=== PATIENT | male | born 2000 | race Caucasian/White ===

== ENCOUNTER 2024-10-16 06:30 | Emergency (ER) | payer MEDICAID ==
[~2024-10-16] VITALS: Ht 175.3 cm; Wt 136.0 kg
[~2024-10-16 06:30] MED LIST: ZOFR4T SL
--- NOTE | 2024-10-16 06:58 | ED.PDOC ---
GI ASSESSMENT HPI Comments This is a 23 year old male SEBLE presenting to the ED with chief complaint of abdominal pain. Patient reports that he has been experiencing 9/10 epigastric abdominal pain with associated nausea, vomiting, and diarrhea for the past 4.5 hours. EMS relays that the patient was given 4mg of Zofran on route to the ED. Patient denies any fever, chills, SOB, chest pain, GARCIA, or dysuria. Chief Complaint: Abdominal Pain Time Seen by MD: 06:55 Reviewed Notes: Nurses Notes, Surveyor Mine Notes, Medications, Allergies Allergies: Coded Allergies: NO KNOWN ALLERGIES (Unverified , 04/01/24) Home Meds Active Scripts Ondansetron Odt 4MG Tab (ZOFRAN PO) 4 Mg Tb, 4 MG SL QIDPRN, #20 TAB ODT TAB-DISSOLVE IN MOUTH, THEN SWALLOW Prov:CEDRIC SANTOS MD 04/01/24 Information Source: Patient, Emergency Med Personnel Mode of Arrival: EMS Timing: Days Duration: Since onset Prehospital treatment: None Quality: Sharp Vomitus: Watery Stool: Watery Severity: Moderate Recent: None Recent Hx of: None Pain Location: Epigastric Modifying Factors: Nothing Associated sign and symptoms: Nausea, Vomiting, Diarrhea, Abdominal Pain Past Medical History PAST MEDICAL HISTORY: Denies Surgical History: Denies all surgeries Family History Family History: Reviewed,noncontributory to illness, No family hx of Cancer, No family hx of DM, No family hx of Heart joe, No family hx of HTN, No family hx ofKidney joe, No family hx of Liver joe, No family hx of Lung joe, No family hx of Stroke Social History Smoker: Non-Smoker Alcohol: Denies ETOH Use Drugs: Denies Drug Use Lives In: Home Constitutional: denies: chills, diaphoresis, fatigue, fever, malaise, sweats, weakness, others EENTM: denies: blurred vision, double vision, ear bleeding, ear discharge, ear drainage, ear pain, ear ringing, eye pain, eye redness, hearing loss, mouth pain, mouth swelling, nasal discharge, nose bleeding, nose congestion, nose pain, photophobia, tearing, throat pain, throat swelling, voice changes, others Respiratory: denies: cough, hemoptysis, orthopnea, SOB at rest, shortness of breath, SOB with excertion, stridor, wheezing, others Cardiovascular: denies: chest pain, dizzy spells, diaphoresis, Dyspnea on exertion, edema, irregular heart beat, left arm pain, lightheadedness, palpitations, PND, syncope, others Gastrointestinal: reports: abdominal pain, diarrhea, nausea, vomiting; denies: abdomen distended, blood streaked bowels, constipated, dysphagia, difficulty swallowing, hematemesis, melena, poor appetite, poor fluid intake, rectal bleeding, rectal pain, others Genitourinary: denies: burning, dysuria, flank pain, frequency, hematuria, incontinence, penile discharge, penile sore, pain, testicle pain, testicle swelling, urgency, others Neurological: denies: dizziness, fainting, headache, left sided numbness, left sided weakness, numbness, paresthesia, pre-existing deficit, right sided numbness, right sided weakness, seizure, speech problems, tingling, tremors, weakness, others Musculoskeletal: denies: back pain, gout, joint pain, joint swelling, muscle pain, muscle stiffness, neck pain, others Integumetry: denies: bruises, change in color, change in hair/nails, dryness, laceration, lesions, lumps, rash, wounds, others Allergic/Immunocompromised: denies: Difficulty Healing, Frequent Infections, Hives, Itching, others Hematologic/Lymphatic: denies: anemia, blood clots, easy bleeding, easy bruising, swollen glands, others Endocrine: denies: excessive hunger, excessive sweating, excessive thirst, excessive urination, flushing, intolerance to cold, intolerance to heat, unexplained weight gain, unexplained weight loss, others Psychiatric: denies: anxiety, bipolar disorder, depression, hopeless, panic disorder, schizophrenia, sleepless, suicidal, others All Other Systems: Reviewed and Negative Physical Exam General Appearance: No Apparent Distress, Normal HEENT: Normal ENT Inspection, Pharynx Normal, TMs Normal Neck: Full Range of Motion, Non-Tender, Normal, Normal Inspection Respiratory: Chest Non-Tender, Lungs Clear, No Accessory Muscle Use, No Respiratory Distress, Normal Breath Sounds Cardiovascular: No Edema, No JVD, No Murmur, No Gallop, Normal Peripheral Pulses, Regular Rate/Rhythm Breast Exam: Deferred Gastrointestinal: No Organomegaly, No Pulsatile Mass, Normal Bowel Sounds, Soft, Tenderness (Epigastric abdominal tenderness) Genitalia: Deferred Pelvic: Deferred Rectal: Deferred Extremities: No calf tenderness, Normal capillary refill, Normal inspection, Normal range of motion, Non-tender, No pedal edema Musculoskeletal : Apperance: Normal Neurologic: Alert, 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 Was a procedure done?: No GI differential Dx Differential Diagnosis: Cholecystitis, Gastritis/PUD, Gastroenteritis, GI hemorrhage, UTI, Dehydration, Electrolyte Imbalance X-Ray, Labs, Meds, VS Vital Signs Date Time Temp Pulse Resp B/P (MAP) Pulse Ox O2 Delivery O2 Flow Rate FiO2 10/16/24 08:06 83 17 94 Room Air* 0 21 10/16/24 08:06 98.3 83 17 139/79 (99) 94 98.3 10/16/24 06:35 98.1 63 18 132/81 (98) 97 98.1 Lab Test 10/16/24 06:52 Range/Units White Blood Count 11.1 H 4.4-10.8 10^3/uL Red Blood Count 5.30 4.5-5.90 10^6/uL Hemoglobin 16.3 13.5-17.5 g/dL Hematocrit 46.6 41.0-53.0 % Mean Corpuscular Volume 88.0 80.0-100.0 fL Mean Corpuscular Hemoglobin 30.7 28.0-32.0 pg Mean Corpuscular Hemoglobin Concent 34.9 32.0-36.0 g/dL Red Cell Distribution Width 13.5 11.8-14.3 % Platelet Count 300 140-450 10^3/uL Mean Platelet Volume 6.7 L 6.9-10.8 fL Neutrophils (%) (Auto) 80.9 H 37.0-80.0 % Lymphocytes (%) (Auto) 15.3 10.0-50.0 % Monocytes (%) (Auto) 3.0 0.0-12.0 % Eosinophils (%) (Auto) 0.3 0.0-7.0 % Basophils (%) (Auto) 0.5 0.0-2.0 % Neutrophils # (Auto) 9.0 H 1.6-8.6 10 ^3/uL Lymphocytes # (Auto) 1.7 0.4-5.4 10 ^3/uL Monocytes # (Auto) 0.3 0-1.3 10 ^3/uL Eosinophils # (Auto) 0 0-0.8 10 ^3/uL Basophils # (Auto) 0.1 0-0.2 10 ^3/uL Nucleated Red Blood Cells 0.0 % Sodium Level 140 136-145 mmol/L Potassium Level 4.8 3.5-5.1 mmol/L Chloride Level 103 98-107 mmol/L Carbon Dioxide Level 22 20-31 mmol/L Anion Gap 15 5-15 Blood Urea Nitrogen 10 9-23 mg/dL Creatinine 0.94 0.700-1.30 mg/dL Glomerular Filtration Rate Calc 118 >90 mL/min BUN/Creatinine Ratio 10.6 10.0-20.0 Serum Glucose 119 H 74-106 mg/dL Calcium Level 10.4 8.7-10.4 mg/dL Current Medications Medications (Trade) Dose Ordered Sig/Abdulaziz Route Start Time Stop Time Status Last Admin Famotidine (Pepcid Tablet) 20 mg ONCE ONCE PO 10/16/24 08:00 10/16/24 08:01 DC 10/16/24 08:03 Ondansetron HCl (Zofran Po) 4 mg ONCE ONCE PO 10/16/24 08:00 10/16/24 08:01 DC 10/16/24 08:02 Al Hydrox/Mg Hydrox/Simethicone (Maalox Plus) 15 ml ONCE ONCE PO 10/16/24 08:00 10/16/24 08:01 DC 10/16/24 08:03 Chest XR: FINDINGS: Lines and Tubes: None Lungs: No focal consolidation. Pleura: No effusion. No pneumothorax. Cardiomediastinal contours: Unremarkable Bones: No acute osseous abnormality. IMPRESSION: 1. No acute cardiopulmonary disease. Images Reviewed?: Images reviewed and evaluated by me Time of 1ST Reevaluation: 07:55 Reevaluation 1ST: Unchanged Patient Education/Counseling: Diagnosis, Treatment Family Education/Counseling: No Family Present Additional Information Previous visits reviewed: 04/01/24 for food poisoning The following tests were ordered, and results were reviewed by me: CBC, BMP, CXR Additional Information was gathered from interviewing the following independent historians: EMS I reviewed and agreed with the following test results read by other providers: Chest XR I discussed treatment and results with medical personnel and: patient Comprehensive systems review obtained and negative except for what is stated in the HPI. Departure 1 Departure Time of Disposition: 09:31 (Patient likely with gastroenteritis. Patient is feeling better and tolerating p.o.. We will discharge patient home with outpatient follow up) Impression: Primary Impression: Gastroenteritis Disposition: HOME / SELF CARE / HOMELESS Condition: Stable Additional Instructions: You likely have gastroenteritis. It is important to stay well hydrated and well rested. This usually resolves within 1 week. If your symptoms worsen or you have any other concerns please return to the ER. Discharged With: Self Critical Care Note Critical Care Time?: No Stability Stability form required: No Heart Score Heart Score: Heart Score Response (Comments) Value History N/A 0 EKG N/A 0 Age N/A 0 Risk Factors N/A 0 Troponin N/A 0 Total 0 I personally scribed for LUIZ GRADY MD ([email or web address]) on 10/16/24 at 06:58. Electronically submitted by Rony Amin ([email or web address]). I personally scribed for LUIZ GRADY MD ([email or web address]) on 10/16/24 at 07:31. Electronically submitted by Rony Amin ([email or web address]). LUIZ GRADY MD Oct 16, 2024 06:58
--- NOTE | 2024-10-16 07:16 | DVH ---
CHEST RADIOGRAPH Indication: epigastric pain Technique: Single frontal view of the chest was obtained Comparison: None FINDINGS: Lines and Tubes: None Lungs: No focal consolidation. Pleura: No effusion. No pneumothorax. Cardiomediastinal contours: Unremarkable Bones: No acute osseous abnormality. IMPRESSION: 1. No acute cardiopulmonary disease.
[2024-10-16 07:22] LABS: Basophils # (auto) 0.1 10 ^3/uL (0-0.2); Basophils % (auto) 0.5 % (0.0-2.0); Eosinophils # (auto) 0 10 ^3/uL (0-0.8); Eosinophils % (auto) 0.3 % (0.0-7.0); Hematocrit 46.6 % (41.0-53.0); Hemoglobin 16.3 g/dL (13.5-17.5); Lymphocytes # (auto) 1.7 10 ^3/uL (0.4-5.4); Lymphocytes % (auto) 15.3 % (10.0-50.0); Mean Corpuscular Hemoglobin 30.7 pg (28.0-32.0); Mean Corpuscular Hgb Conc. 34.9 g/dL (32.0-36.0); Monocytes # (auto) 0.3 10 ^3/uL (0-1.3); Neutrophils % (auto) 80.9 % (37.0-80.0); Platelet Count (auto) 300 10^3/uL (140-450); Red Cell Distribution Width 13.5 % (11.8-14.3); White Blood Cell 11.1 10^3/uL (4.4-10.8)
[2024-10-16 07:57] LABS: Chloride 103 mmol/L (98-107); Potassium 4.8 mmol/L (3.5-5.1); Sodium 140 mmol/L (136-145)
[2024-10-16 07:58] LABS: Anion Gap 15 (5-15); Calcium 10.4 mg/dL (8.7-10.4); Carbon Dioxide 22 mmol/L (20-31)
[2024-10-16] MEDS: ONDANSETRON ODT 4 MG TAB PO ONE (08:02)
[2024-10-16 08:03] LABS: Glucose 119 mg/dL (74-106)
[2024-10-16] MEDS: FAMOTIDINE 20 MG TAB PO ONE (08:03)
[2024-10-16] MEDS: MAALOX PLUS or MAALOX 30 ML PO ONE (08:03)
[2024-10-16 08:06] VITALS: PULSE 83; RESP 17; O2SAT 94
[2024-10-16 08:28] LABS: BUN/Creatinine Ratio 10.6 (10.0-20.0); Blood Urea Nitrogen 10 mg/dL (9-23)
[2024-10-16 09:36] VITALS: BP 127/78; PULSE 80; RESP 16; TEMP 98.1; O2SAT 94
== END 2024-10-16 09:39 | disposition home or self-care (01) ==
LOC: ER 06:30 → EDBD 06:30 → ER 09:39
DX: K52.9 Noninfective gastroenteritis and colitis, unspecified (principal)
CPT/HCPCS: 36415; 71045; 80048; 85025; 99284; Q0162

== ENCOUNTER 2025-04-09 00:32 | Inpatient (IN) | payer MEDICAID ==
[~2025-04-09] VITALS: Ht 180.3 cm; Wt 159.0 kg
[2025-04-09] MEDS ORDERED: ONDANSETRON ODT 4 MG TAB PO ONE (01:00)
--- NOTE | 2025-04-09 01:10 | ED.PDOC ---
GI ASSESSMENT HPI Comments 24-year-old male with give the ER for abdominal pain. About 1.5 hours ago, after eating, he developed epigastric abdominal pain, radiating through his back and through both flanks, associated with bouts of nausea and vomiting. Patient denies any history of abdominal surgeries. Denies any fevers. Has never had similar discomfort in the past. However, concerned that he may have gallstones because he was reading up on it. Denies any urinary discomfort. Chief Complaint: Abdominal Pain Time Seen by MD: 01:10 Reviewed Notes: Nurses Notes Allergies: Coded Allergies: NO KNOWN ALLERGIES (Unverified , 04/01/24) Home Meds Active Scripts Ondansetron Odt 4MG Tab (ZOFRAN PO) 4 Mg Tb, 4 MG SL QIDPRN, #20 TAB ODT TAB-DISSOLVE IN MOUTH, THEN SWALLOW Prov:CEDRIC SANTOS MD 04/01/24 Information Source: Patient Mode of Arrival: Ambulatory Past Medical History PAST MEDICAL HISTORY: Denies Surgical History: Denies all surgeries Family History Family History: Reviewed,noncontributory to illness, No family hx of Cancer, No family hx of DM, No family hx of Heart joe, No family hx of HTN, No family hx ofKidney joe, No family hx of Liver joe, No family hx of Lung joe, No family hx of Stroke Social History Smoker: Non-Smoker Alcohol: Denies ETOH Use Drugs: Denies Drug Use Lives In: Home Constitutional: denies: chills, diaphoresis, fatigue, fever, malaise, sweats, weakness, others EENTM: denies: blurred vision, double vision, ear bleeding, ear discharge, ear drainage, ear pain, ear ringing, eye pain, eye redness, hearing loss, mouth pain, mouth swelling, nasal discharge, nose bleeding, nose congestion, nose pain, photophobia, tearing, throat pain, throat swelling, voice changes, others Respiratory: denies: cough, hemoptysis, orthopnea, SOB at rest, shortness of breath, SOB with excertion, stridor, wheezing, others Cardiovascular: denies: chest pain, dizzy spells, diaphoresis, Dyspnea on exertion, edema, irregular heart beat, left arm pain, lightheadedness, palpitations, PND, syncope, others Gastrointestinal: reports: abdominal pain, nausea, vomiting; denies: abdomen distended, blood streaked bowels, constipated, diarrhea, dysphagia, difficulty swallowing, hematemesis, melena, poor appetite, poor fluid intake, rectal bleeding, rectal pain, others Genitourinary: denies: burning, dysuria, flank pain, frequency, hematuria, incontinence, penile discharge, penile sore, pain, testicle pain, testicle swelling, urgency, others Neurological: denies: dizziness, fainting, headache, left sided numbness, left sided weakness, numbness, paresthesia, pre-existing deficit, right sided numbness, right sided weakness, seizure, speech problems, tingling, tremors, weakness, others Musculoskeletal: denies: back pain, gout, joint pain, joint swelling, muscle pain, muscle stiffness, neck pain, others Integumetry: denies: bruises, change in color, change in hair/nails, dryness, laceration, lesions, lumps, rash, wounds, others Allergic/Immunocompromised: denies: Difficulty Healing, Frequent Infections, Hives, Itching, others Hematologic/Lymphatic: denies: anemia, blood clots, easy bleeding, easy bruising, swollen glands, others Endocrine: denies: excessive hunger, excessive sweating, excessive thirst, excessive urination, flushing, intolerance to cold, intolerance to heat, unexplained weight gain, unexplained weight loss, others Psychiatric: denies: anxiety, bipolar disorder, depression, hopeless, panic disorder, schizophrenia, sleepless, suicidal, others Physical Exam General Appearance: Normal, Other (Uncomfortable appearing, actively vomiting) HEENT: Normal ENT Inspection, Pharynx Normal, TMs Normal Neck: Full Range of Motion, Non-Tender, Normal, Normal Inspection Respiratory: Chest Non-Tender, Lungs Clear, No Accessory Muscle Use, No Respiratory Distress, Normal Breath Sounds Cardiovascular: No Edema, No JVD, No Murmur, No Gallop, Normal Peripheral Pulses, Regular Rate/Rhythm Breast Exam: Deferred Gastrointestinal: No Organomegaly, No Pulsatile Mass, Normal Bowel Sounds, Soft, Other (+epigastric ttp) Genitalia: Deferred Pelvic: Deferred Rectal: Deferred Extremities: No calf tenderness, Normal capillary refill, Normal inspection, Normal range of motion, Non-tender, No pedal edema Musculoskeletal : Apperance: Normal Neurologic: Alert, 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 Was a procedure done?: No GI differential Dx Differential Diagnosis: Cholecystitis, Gastritis/PUD, Gastroenteritis, Pancreatitis, Food Poisoning X-Ray, Labs, Meds, VS Vital Signs Date Time Temp Pulse Resp B/P (MAP) Pulse Ox O2 Delivery O2 Flow Rate FiO2 04/09/25 02:03 98.8 04/09/25 00:36 97.0 64 16 140/79 99 97.0 Lab Test 04/09/25 02:36 04/09/25 01:15 Range/Units Lactic Acid Level 1.6 0.4-2.0 mmol/L White Blood Count 12.2 H 4.4-10.8 10^3/uL Red Blood Count 5.38 4.5-5.90 10^6/uL Hemoglobin 15.6 13.5-17.5 g/dL Hematocrit 46.9 41.0-53.0 % Mean Corpuscular Volume 87.3 80.0-100.0 fL Mean Corpuscular Hemoglobin 29.0 28.0-32.0 pg Mean Corpuscular Hemoglobin Concent 33.3 32.0-36.0 g/dL Red Cell Distribution Width 13.9 11.8-14.3 % Platelet Count 442 140-450 10^3/uL Mean Platelet Volume 6.1 L 6.9-10.8 fL Neutrophils (%) (Auto) 75.8 37.0-80.0 % Lymphocytes (%) (Auto) 17.9 10.0-50.0 % Monocytes (%) (Auto) 4.7 0.0-12.0 % Eosinophils (%) (Auto) 0.8 0.0-7.0 % Basophils (%) (Auto) 0.8 0.0-2.0 % Neutrophils # (Auto) 9.3 H 1.6-8.6 10 ^3/uL Lymphocytes # (Auto) 2.2 0.4-5.4 10 ^3/uL Monocytes # (Auto) 0.6 0-1.3 10 ^3/uL Eosinophils # (Auto) 0.1 0-0.8 10 ^3/uL Basophils # (Auto) 0.1 0-0.2 10 ^3/uL Nucleated Red Blood Cells 0.0 % Prothrombin Time 11.3 9.3-11.8 sec Prothrombin Time INR 1.07 0.9-1.15 Activated Partial Thromboplast Time 30.7 24.5-34.5 SEC Sodium Level 138 136-145 mmol/L Potassium Level 3.7 3.5-5.1 mmol/L Chloride Level 103 98-107 mmol/L Carbon Dioxide Level 24 20-31 mmol/L Anion Gap 11 5-15 Blood Urea Nitrogen 11 9-23 mg/dL Creatinine 0.90 0.700-1.30 mg/dL Glomerular Filtration Rate Calc 124 >90 mL/min BUN/Creatinine Ratio 12.2 10.0-20.0 Serum Glucose 115 H 74-106 mg/dL Calcium Level 9.7 8.7-10.4 mg/dL Total Bilirubin 0.6 0.2-1.0 mg/dL Aspartate Amino Transferase (AST) 28 13-40 U/L Alanine Aminotransferase (ALT) 49 H 7-40 U/L Alkaline Phosphatase 69 46-116 U/L Total Protein 8.0 5.7-8.2 g/dL Albumin 4.8 3.2-4.8 g/dL Triglycerides Level Pending Cholesterol Level Pending LDL Cholesterol Pending HDL Cholesterol Pending Lipase 30 12-53 U/L Current Medications Medications (Trade) Dose Ordered Sig/Abdulaziz Route Start Time Stop Time Status Last Admin Acetaminophen (Tylenol Tablet Or Capsule) 1,000 mg ONCE ONCE PO 04/09/25 01:00 04/09/25 01:01 DC 04/09/25 02:03 Lidocaine HCl (Xylocaine 2% Viscous) 10 ml ONCE ONCE PO 04/09/25 01:00 04/09/25 01:01 DC 04/09/25 02:03 Al Hydrox/Mg Hydrox/Simethicone (Maalox Plus) 30 ml ONCE ONCE PO 04/09/25 01:00 04/09/25 01:01 DC 04/09/25 02:03 Sodium Chloride 1,000 ml @ 1,000 mls/hr Q1H ONCE IV 04/09/25 01:15 04/09/25 02:14 DC 04/09/25 02:03 Ondansetron HCl (Zofran) 4 mg ONCE ONCE IV 04/09/25 01:15 04/09/25 01:16 DC 04/09/25 02:05 Famotidine (Pepcid Injection) 20 mg ONCE ONCE IV 04/09/25 01:15 04/09/25 01:16 DC 04/09/25 02:04 Ketorolac Tromethamine (Toradol Injection) 15 mg ONCE ONCE IV 04/09/25 01:15 04/09/25 01:16 DC 04/09/25 02:04 PROCEDURE(s): ABDL - ABDOMEN LIMITED REASON: epigastric pain ORDER NUMBER(s): [id number], ACCESSION NUMBER(s): [id number] INDICATION: epigastric pain TECHNIQUE: Multiple real-time sonographic images were obtained of the right upper quadrant. COMPARISON: None FINDINGS: The liver demonstrates diffusely increased echotexture without focal mass lesions. The liver measures 19.1 cm. Normal hepatopetal portal venous flow appreciated. No evidence of pleural effusion or abdominal ascites. There is no intrahepatic or extrahepatic ductal dilatation. The common bile duct was not well visualized. Gallstones and sludge identified within the gallbladder. Gallbladder wall thickening measuring up to 6 mm. Negative sonographic barakat's sign. The right kidney measures 11.2 cm. The right kidney is normal in contour, size, and shape. The echogenicity is normal. There is no hydronephrosis. The pancreas is not well visualized due to overlying bowel gas. IMPRESSION: 1. Cholelithiasis and gallbladder sludge with gallbladder wall thickening. Negative sonographic Barakat sign. Findings equivocal for acute cholecystitis. 2. Hepatic steatosis and hepatomegaly. Time of 1ST Reevaluation: 01:07 Reevaluation 1ST: Unchanged Patient Education/Counseling: Diagnosis, Treatment Family Education/Counseling: No Family Present SEPSIS Sepsis Screen Date sepsis recognized/suspect: Apr 09, 2025 Time Sepsis recognized/suspect: 0039 Recent Procedure: No On Antibiotic Therapy: No Respiratory Rate >20: No Heart Rate >90: No Temp<36 C (96.8 F) or >38.3 C: No SBP <90 or MAP <65 mmHG: No New Acute Mental Status Change: No Is the patient on CPAP, BIPAP,: No Physician Orders Urinalysis (04/09/25 00:54) Abdomen Limited (04/09/25 01:17) Blood Culture (04/09/25 02:23) Vital Signs Date Time Temp Pulse Resp B/P (MAP) Pulse Ox O2 Delivery O2 Flow Rate FiO2 04/09/25 02:03 98.8 04/09/25 00:36 97.0 64 16 140/79 99 97.0 Laboratory Tests Test 04/09/25 01:15 04/09/25 02:36 White Blood Count 12.2 10^3/uL (4.4-10.8) H Lactic Acid Level 1.6 mmol/L (0.4-2.0) Medications Medications Dose Ordered Sig/Abdulaziz Route Start Time Stop Time Status Last Admin Dose Admin Acetaminophen 1,000 mg ONCE ONCE PO 04/09/25 01:00 04/09/25 01:01 DC 04/09/25 02:03 Al Hydrox/Mg Hydrox/Simethicone 30 ml ONCE ONCE PO 04/09/25 01:00 04/09/25 01:01 DC 04/09/25 02:03 Famotidine 20 mg ONCE ONCE IV 04/09/25 01:15 04/09/25 01:16 DC 04/09/25 02:04 Ketorolac Tromethamine 15 mg ONCE ONCE IV 04/09/25 01:15 04/09/25 01:16 NE 04/09/25 02:04 Lidocaine HCl 10 ml ONCE ONCE PO 04/09/25 01:00 04/09/25 01:01 DC 04/09/25 02:03 Ondansetron HCl 4 mg ONCE ONCE IV 04/09/25 01:15 04/09/25 01:16 NE 04/09/25 02:05 Sodium Chloride 1,000 ml @ 1,000 mls/hr Q1H ONCE IV 04/09/25 01:15 04/09/25 02:14 DC 04/09/25 02:03 Departure 1 Departure Time of Disposition: 04:41 (24-year-old male with no past medical history who presented for a sudden onset of mid abdominal pain, nausea, vomiting. Given the mid abdominal discomfort consider possible acute pancreatitis. Lipase is within normal limits, does not seem consistent with acute pancreatitis. Given the sudden onset of mid abdominal pain consider possible gastritis, peptic ulcer disease. Given the pain radiating to the back consider possible acute biliary process. CBC with no evidence of critical leukocytosis or significant anemia. Metabolic panel with no evidence of acute electrolyte abnormalities or acute kidney insufficiency. Liver function tests with no evidence of any significant transaminitis, patient also with normal bilirubin. Ultrasound was performed which shows that the patient has cholelithiasis and findings which are equivocal for acute cholecystitis. Ultrasound and labs do not seem consistent with choled ocholithiasis. Patient was treated for discomfort with 1 L normal saline IV fluid bolus, IV Zofran, IV Pepcid, IV Toradol. Also given oral Tylenol, Mylanta, viscous lidocaine. Was given IV Zosyn for possible acute cholecystitis. Will be admitted for evaluation and management.) Impression: Primary Impression: Epigastric pain Additional Impressions: Nausea & vomiting Acute cholecystitis Disposition: ADMITTED INPATIENT Condition: Fair Critical Care Note Critical Care Time?: No Stability Stability form required: No Heart Score Heart Score: Heart Score Response (Comments) Value History N/A 0 EKG N/A 0 Age N/A 0 Risk Factors N/A 0 Troponin N/A 0 Total 0 I personally scribed for ABDIEL RODRIGUEZ MD ([place] [employer]) on 04/09/25 at 01:10. Electronically submitted by Garret Tinoco ([employer] I personally scribed for ABDIEL RODRIGUEZ MD ([employer]) on 04/09/25 at 02:18. Electronically submitted by Garret Tinoco ([employer] ABDIEL RODRIGUEZ MD Apr 09, 2025 01:10
[2025-04-09 01:24] LABS: Hematocrit 46.9 % (41.0-53.0); Hemoglobin 15.6 g/dL (13.5-17.5); Mean Corpuscular Hemoglobin 29.0 pg (28.0-32.0); Mean Corpuscular Volume 87.3 fL (80.0-100.0); Nucleated Red Blood Cells % 0.0 %
[2025-04-09 01:37] LABS: Albumin 4.8 g/dL (3.2-4.8); Alkaline Phosphatase 69 U/L (46-116); Anion Gap 11 (5-15); BUN/Creatinine Ratio 12.2 (10.0-20.0); Bilirubin, Total 0.6 mg/dL (0.2-1.0); Blood Urea Nitrogen 11 mg/dL (9-23); Calcium 9.7 mg/dL (8.7-10.4); Carbon Dioxide 24 mmol/L (20-31); Chloride 103 mmol/L (98-107); Lipase 30 U/L (12-53); Potassium 3.7 mmol/L (3.5-5.1); Sodium 138 mmol/L (136-145); Total Protein 8.0 g/dL (5.7-8.2)
[2025-04-09 01:38] LABS: Alanine Aminotransferase 49 U/L (7-40); Glucose 115 mg/dL (74-106)
[2025-04-09] MEDS: LIDOCAINE VISCOUS 2% 15ML UD PO ONE (02:03)
[2025-04-09] MEDS: SODIUM CHLORIDE 0.9% 1,000 ML IV ONE (02:03)
[2025-04-09] MEDS: MAALOX PLUS or MAALOX 30 ML PO ONE (02:03)
[2025-04-09] MEDS: ACETAMINOPHEN 500 MG TAB or CAP PO ONE (02:03)
[2025-04-09] MEDS: KETOROLAC TROMETH 30 MG/ML 1ML VIAL IV ONE (02:04)
[2025-04-09] MEDS: FAMOTIDINE (10MG/ML) 2ML VL IV ONE (02:04)
[2025-04-09] MEDS: ONDANSETRON HCL 4 MG/2 ML VIAL IV ONE (02:05)
--- NOTE | 2025-04-09 02:08 | DVH ---
INDICATION: epigastric pain TECHNIQUE: Multiple real-time sonographic images were obtained of the right upper quadrant. COMPARISON: None FINDINGS: The liver demonstrates diffusely increased echotexture without focal mass lesions. The liver measures 19.1 cm. Normal hepatopetal portal venous flow appreciated. No evidence of pleural effusion or abdominal ascites. There is no intrahepatic or extrahepatic ductal dilatation. The common bile duct was not well visualized. Gallstones and sludge identified within the gallbladder. Gallbladder wall thickening measuring up to 6 mm. Negative sonographic barakat's sign. The right kidney measures 11.2 cm. The right kidney is normal in contour, size, and shape. The echogenicity is normal. There is no hydronephrosis. The pancreas is not well visualized due to overlying bowel gas. IMPRESSION: 1. Cholelithiasis and gallbladder sludge with gallbladder wall thickening. Negative sonographic Barakat sign. Findings equivocal for acute cholecystitis. 2. Hepatic steatosis and hepatomegaly.
[2025-04-09] MEDS: PIPERACILLIN-TAZOB 3.375GM 100 ML IV ONE (02:30)
[2025-04-09] MEDS: SODIUM CHLORIDE 0.9% 1,000 ML IV SCH (03:30)
--- NOTE | 2025-04-09 03:33 | DVHHPRES ---
History of Present Illness Resident Creating Document: ROBEL CRUM RESIDENT History of Present Illness This is a 24-year-old male without any significant past medical history presented to the ED with a chief complaint of severe epigastric pain and vomiting since 4:00 p.m. prior to this admission. Patient states that after e ating fried chicken in the 4:00 p.m. he started having severe epigastric pain which was sharp stabbing in nature, 10/10 radiate to the back without any significant aggravating or relieving factors and associated with intractable vomiting and 2 episodes of diarrhoea.. He also mentioned that for last few months he had intermittent biliary colic mainly associated with fatty food taryn stion but he did not seek any medical attention previously. He denies fever, chills, shortness of breath, dizziness, diaphoresis, dysuria, hematuria or any altered bowel habit. Past Medical History Denies any past medical history Past Surgical History Denies any surgical history Family History Noncontributory Past Social History Lives with family Nonsmoker, nonalcoholic and never tried any drugs Review of Systems Constitutional: No: Fever, Chills, Sweats, Weakness, Malaise, Other Eyes: No: Pain, Vision change, Conjunctivae inflammation, Eyelid inflammation, Other, Redness ENT: No: Ear pain, Ear discharge, Nose pain, Nose discharge, Nose congestion, Mouth pain, Mouth swelling, Throat pain, Throat swelling, Other Respiratory: No: Cough, Dry, Shortness of breath, SOB with excertion, Wheezing, Hemoptysis, Pleuritic Pain, Sputum, Wheezing, Other Cardiovascular: No: Chest Pain, Palpitations, Orthopnea, Paroxysmal Noc. Dyspnea, Edema, Lt Headedness, Other Gastrointestinal: Nausea, Vomiting, Abdominal Pain, Diarrhea; No: Constipation, Melena, Hematochezia, Other Genitourinary: No Dysuria, No Frequency, No Incontinence, No Hematuria, No Retention, No Other Musculoskeletal: No: other, neck pain, shoulder pain, arm pain, back pain, hand pain, leg pain, foot pain Skin: No: Rash, Lesions, Jaundice, Bruising, Other Neurological: No: Weakness, Numbness, Incoordination, Change in speech, Confusion, Seizures, Other Allergies: Coded Allergies: NO KNOWN ALLERGIES (Unverified , 04/01/24) Exam Vital Signs Vital Signs Date Time Temp Pulse Resp B/P (MAP) Pulse Ox O2 Delivery O2 Flow Rate FiO2 04/09/25 02:03 98.8 04/09/25 00:36 64 16 140/79 99 Exam Physical examination: General Appearance: Alert, Oriented X3, Cooperative, No acute distress HEENT: Atraumatic, PERRLA, EOMI, Mucous membrane moist/pink Respiratory: Clear to auscultation, Normal air movement Cardiovascular: Regular rate, Normal S1, Normal S2, No murmurs, no chest wall tenderness Abdominal: Normal bowel sounds, Soft, epigastric tenderness present, No hepatospenomegaly, No masses Extremities: No clubbing, No cyanosis, No edema, Normal pulses, No tenderness/swelling Skin: No rashes, No breakdown, No significant lesion Neuro: Normal gait, Normal speech, Strength at 5/5 X4 ext, Normal tone, Sen sation intact, Cranial nerves 3-12 NL, Reflexes 2+ Psych/Mental Status: Mental status NL, Mood NL Labs/Xrays Labs Test 04/09/25 02:36 04/09/25 01:15 Range/Units Lactic Acid Level 1.6 0.4-2.0 mmol/L White Blood Count 12.2 H 4.4-10.8 10^3/uL Red Blood Count 5.38 4.5-5.90 10^6/uL Hemoglobin 15.6 13.5-17.5 g/dL Hematocrit 46.9 41.0-53.0 % Mean Corpuscular Volume 87.3 80.0-100.0 fL Mean Corpuscular Hemoglobin 29.0 28.0-32.0 pg Mean Corpuscular Hemoglobin Concent 33.3 32.0-36.0 g/dL Red Cell Distribution Width 13.9 11.8-14.3 % Platelet Count 442 140-450 10^3/uL Mean Platelet Volume 6.1 L 6.9-10.8 fL Neutrophils (%) (Auto) 75.8 37.0-80.0 % Lymphocytes (%) (Auto) 17.9 10.0-50.0 % Monocytes (%) (Auto) 4.7 0.0-12.0 % Eosinophils (%) (Auto) 0.8 0.0-7.0 % Basophils (%) (Auto) 0.8 0.0-2.0 % Neutrophils # (Auto) 9.3 H 1.6-8.6 10 ^3/uL Lymphocytes # (Auto) 2.2 0.4-5.4 10 ^3/uL Monocytes # (Auto) 0.6 0-1.3 10 ^3/uL Eosinophils # (Auto) 0.1 0-0.8 10 ^3/uL Basophils # (Auto) 0.1 0-0.2 10 ^3/uL Nucleated Red Blood Cells 0.0 % Sodium Level 138 136-145 mmol/L Potassium Level 3.7 3.5-5.1 mmol/L Chloride Level 103 98-107 mmol/L Carbon Dioxide Level 24 20-31 mmol/L Anion Gap 11 5-15 Blood Urea Nitrogen 11 9-23 mg/dL Creatinine 0.90 0.700-1.30 mg/dL Glomerular Filtration Rate Calc 124 >90 mL/min BUN/Creatinine Ratio 12.2 10.0-20.0 Serum Glucose 115 H 74-106 mg/dL Calcium Level 9.7 8.7-10.4 mg/dL Total Bilirubin 0.6 0.2-1.0 mg/dL Aspartate Amino Transferase (AST) 28 13-40 U/L Alanine Aminotransferase (ALT) 49 H 7-40 U/L Alkaline Phosphatase 69 46-116 U/L Total Protein 8.0 5.7-8.2 g/dL Albumin 4.8 3.2-4.8 g/dL Lipase 30 12-53 U/L SEPSIS Sepsis Screen Date sepsis recognized/suspect: Apr 09, 2025 Time Sepsis recognized/suspect: 0039 Recent Procedure: No On Antibiotic Therapy: No Respiratory Rate >20: No Heart Rate >90: No Temp<36 C (96.8 F) or >38.3 C: No SBP <90 or MAP <65 mmHG: No New Acute Mental Status Change: No Is the patient on CPAP, BIPAP,: No Physician Orders Urinalysis (04/09/25 00:54) Abdomen Limited (04/09/25 01:17) Blood Culture (04/09/25 02:23) Vital Signs Date Time Temp Pulse Resp B/P (MAP) Pulse Ox O2 Delivery O2 Flow Rate FiO2 04/09/25 02:03 98.8 04/09/25 00:36 97.0 64 16 140/79 99 97.0 Laboratory Tests Test 04/09/25 01:15 04/09/25 02:36 White Blood Count 12.2 10^3/uL (4.4-10.8) H Lactic Acid Level 1.6 mmol/L (0.4-2.0) Medications Medications Dose Ordered Sig/Abdulaziz Route Start Time Stop Time Status Last Admin Dose Admin Acetaminophen 1,000 mg ONCE ONCE PO 04/09/25 01:00 04/09/25 01:01 DC 04/09/25 02:03 1,000 MG Al Hydrox/Mg Hydrox/Simethicone 30 ml ONCE ONCE PO 04/09/25 01:00 04/09/25 01:01 DC 04/09/25 02:03 30 ML Famotidine 20 mg ONCE ONCE IV 04/09/25 01:15 04/09/25 01:16 DC 04/09/25 02:04 20 MG Ketorolac Tromethamine 15 mg ONCE ONCE IV 04/09/25 01:15 04/09/25 01:16 DC 04/09/25 02:04 15 MG Lidocaine HCl 10 ml ONCE ONCE PO 04/09/25 01:00 04/09/25 01:01 DC 04/09/25 02:03 10 ML Ondansetron HCl 4 mg ONCE ONCE IV 04/09/25 01:15 04/09/25 01:16 DC 04/09/25 02:05 4 MG Sodium Chloride 1,000 ml @ 1,000 mls/hr Q1H ONCE IV 04/09/25 01:15 04/09/25 02:14 DC 04/09/25 02:03 1,000 MLS/HR Assessment/Plan Assessment/Plan Assessment and plan: # Possible acute cholecystitis with cholelithiasis # Intractable epigastric pain due to above # Rule out acute pancreatitis - Gallbladder ultrasound demonstrated cholelithiasis and gallbladder sludge with gallbladder wall thickening - Mild transaminitis - NPO - IV NS at 75 mL/hours - IV Toradol 15 mg Q 8 hours - IV Zosyn 3.375 g Q 8 hours - Ordered NM HIDA scan, CT abdomen pelvis without contrast, lipid panel, UDS - Consulted surgery # Morbid obesity, BMI 48.9 kg/m2 - counseled patient regarding weight loss, lifestyle modification and physical exercise # PUD prophylaxis - IV Protonix 40 mg p.o. daily # DVT prophylaxis - Not recommended Code status and goal of care discussed with the patient for more than 20 minutes full code Plan discussed with Dr. Holland Plan discussed with: Patient, Other Visit Coding STANDARD RES Billing Provider: GT LAND Date of Service if different f: Apr 09, 2025 Common Visit Codes: 10976-LEUKJZB INP/OBS CARE (HIGH) Secondary Visit Codes: 28148-[id number] CARE PLAN 30 MINUTES ROBEL CRUM RESIDENT Apr 09, 2025 03:33
[2025-04-09 03:59] LABS: INR 1.07 (0.9-1.15); Partial Thromboplastin Time 30.7 SEC (24.5-34.5); Prothrombin Time 11.3 sec (9.3-11.8)
[2025-04-09 04:28] VITALS: BP 105/64; PULSE 76; RESP 17; TEMP 97.9; O2SAT 98
[2025-04-09 05:04] LABS: Cholesterol 156 mg/dL (< 200); HDL Cholesterol 30 mg/dL (40-59); Triglycerides 130 mg/dL (< 150)
--- NOTE | 2025-04-09 05:05 | DVH ---
Exam: CT CT AB PEL WO CON-NO ORAL OR IV History: Abdominal pain Comparison Study: CT ABD/PEL on DOS: 01/06/25 Technique: Multidetector spiral CT of the abdomen and pelvis was performed from lung bases to pubic symphysis. Imaging was performed without intravenous contrast. Coronal and sagittal multiplanar reformats were obtained from the axial data set by the technologist. Radiation Dose : 1. Abdomen/Pelvis: CTDIvol 27.11 mGy, DLP 1829.99 mGy*cm. Findings: Evaluation of vasculature and solid organs is limited due to lack of intravenous contrast use. Lung Bases: Lung bases are clear. Visualized portions of the heart and pericardium are unremarkable. Liver: The liver is normal in size. No focal lesions. Diffusely hypoattenuating liver parenchyma consistent with hepatic steatosis. Gallbladder and Biliary Tree: There are multiple gallstones. No intrahepatic or extrahepatic biliary ductal dilatation. Spleen: Unremarkable Pancreas: The pancreas is grossly unremarkable. Adrenal Glands: Unremarkable Kidneys: Kidneys are unremarkable without calculi or hydronephrosis. GI tract: The stomach is grossly normal in appearance. No evidence of small bowel wall thickening or abnormal dilatation to suggest bowel obstruction. The colon is unremarkable. The appendix is visualized and is normal. Peritoneum/mesentery/retroperitoneum. No evidence of free intraperitoneal air. No ascites. No evidence of suspicious lymphadenopathy. Abdominal Wall: Unremarkable. Vasculature: The visualized abdominal aorta is normal in size and caliber. Evaluation of abdominal and pelvic vessels is limited due to lack of intravenous contrast. Urinary Bladder: Grossly unremarkable for degree of distention. Pelvic Organs: Unremarkable Musculoskeletal: No aggressive focal bony lesions, acute fractures or dislocation. IMPRESSION: 1. No acute abdominal or pelvic findings. 2. Cholelithiasis. 3. Hepatic steatosis.
--- NOTE | 2025-04-09 05:05 | DVH ---
CHEST RADIOGRAPH Indication: sob Technique: Single frontal view of the chest was obtained COMPARISON: XY CHEST PORTABLE on DOS: 10/16/24 FINDINGS: Lines and Tubes: None Lungs: Clear Pleura: No effusion. No pneumothorax. Cardiomediastinal contours: Unremarkable Bones: Unremarkable IMPRESSION: 1. No acute disease.
[2025-04-09 05:25] LABS: Hematocrit 42.5 % (41.0-53.0); Hemoglobin 14.3 g/dL (13.5-17.5); Mean Corpuscular Hemoglobin 29.5 pg (28.0-32.0); Mean Corpuscular Volume 87.6 fL (80.0-100.0); Nucleated Red Blood Cells % 0.0 %
[2025-04-09 05:42] LABS: Alkaline Phosphatase 62 U/L (46-116); Anion Gap 8 (5-15); BUN/Creatinine Ratio 12.9 (10.0-20.0); Blood Urea Nitrogen 11 mg/dL (9-23); Calcium 9.1 mg/dL (8.7-10.4); Carbon Dioxide 28 mmol/L (20-31); Chloride 104 mmol/L (98-107); Potassium 4.9 mmol/L (3.5-5.1); Sodium 140 mmol/L (136-145); Total Protein 7.3 g/dL (5.7-8.2)
[2025-04-09 05:43] LABS: Albumin 4.3 g/dL (3.2-4.8); Bilirubin, Total 0.5 mg/dL (0.2-1.0)
[2025-04-09 05:53] LABS: Alanine Aminotransferase 43 U/L (7-40); Glucose 113 mg/dL (74-106)
[2025-04-09 09:15] VITALS: BP 111/60; PULSE 67; RESP 18; TEMP 98.2; O2SAT 98
--- NOTE | 2025-04-09 09:43 | DVHINCON2 ---
Date of service: Apr 09, 2025 Family History: Patient reports no known family medical history. Allergies: Coded Allergies: NO KNOWN ALLERGIES (Unverified , 04/01/24) Current Medications Current Medications Medications (Trade) Dose Ordered Sig/Abdulaziz Route PRN Reason Start Time Stop Time Status Last Admin Sodium Chloride 1,000 ml @ 75 mls/hr [id number] IV 04/09/25 03:30 04/09/25 03:30 Piperacillin Sod/ Tazobactam Sod 100 ml @ 25 mls/hr Q8HR IV 04/09/25 14:00 Ketorolac Tromethamine (Toradol Injection) 15 mg Q8H IV 04/09/25 10:00 04/14/25 09:59 Vital Signs Vital Signs Date Time Temp Pulse Resp B/P (MAP) Pulse Ox O2 Delivery O2 Flow Rate FiO2 04/09/25 09:15 98.2 67 18 111/60 (77) 98 98.2 04/09/25 04:28 Room Air* 0 21 Labs/Diagnostic Data Labs Test 04/09/25 05:09 04/09/25 02:36 04/09/25 01:15 Range/Units White Blood Count 10.8 4.4-10.8 10^3/uL Red Blood Count 4.86 4.5-5.90 10^6/uL Hemoglobin 14.3 13.5-17.5 g/dL Hematocrit 42.5 41.0-53.0 % Mean Corpuscular Volume 87.6 80.0-100.0 fL Mean Corpuscular Hemoglobin 29.5 28.0-32.0 pg Mean Corpuscular Hemoglobin Concent 33.7 32.0-36.0 g/dL Red Cell Distribution Width 13.4 11.8-14.3 % Platelet Count 425 140-450 10^3/uL Mean Platelet Volume 6.1 L 6.9-10.8 fL Neutrophils (%) (Auto) 85.8 H 37.0-80.0 % Lymphocytes (%) (Auto) 11.5 10.0-50.0 % Monocytes (%) (Auto) 2.1 0.0-12.0 % Eosinophils (%) (Auto) 0.1 0.0-7.0 % Basophils (%) (Auto) 0.5 0.0-2.0 % Neutrophils # (Auto) 9.3 H 1.6-8.6 10 ^3/uL Lymphocytes # (Auto) 1.2 0.4-5.4 10 ^3/uL Monocytes # (Auto) 0.2 0-1.3 10 ^3/uL Eosinophils # (Auto) 0 0-0.8 10 ^3/uL Basophils # (Auto) 0.1 0-0.2 10 ^3/uL Nucleated Red Blood Cells 0.0 % Sodium Level 140 136-145 mmol/L Potassium Level 4.9 3.5-5.1 mmol/L Chloride Level 104 98-107 mmol/L Carbon Dioxide Level 28 20-31 mmol/L Anion Gap 8 5-15 Blood Urea Nitrogen 11 9-23 mg/dL Creatinine 0.85 0.700-1.30 mg/dL Glomerular Filtration Rate Calc 126 >90 mL/min BUN/Creatinine Ratio 12.9 10.0-20.0 Serum Glucose 113 H 74-106 mg/dL Calcium Level 9.1 8.7-10.4 mg/dL Total Bilirubin 0.5 0.2-1.0 mg/dL Aspartate Amino Transferase (AST) 28 13-40 U/L Alanine Aminotransferase (ALT) 43 H 7-40 U/L Alkaline Phosphatase 62 46-116 U/L Total Protein 7.3 5.7-8.2 g/dL Albumin 4.3 3.2-4.8 g/dL Lactic Acid Level 1.6 0.4-2.0 mmol/L Prothrombin Time 11.3 9.3-11.8 sec Prothrombin Time INR 1.07 0.9-1.15 Activated Partial Thromboplast Time 30.7 24.5-34.5 SEC Triglycerides Level 130 < 150 mg/dL Cholesterol Level 156 < 200 mg/dL LDL Cholesterol 115 H < 100 mg/dL HDL Cholesterol 30 L 40-59 mg/dL Lipase 30 12-53 U/L Assessment 24 year old morbidly obese male with now resolved abdominal pain and nausea due to gallstones, vital signs stable, labs reviewed and non diagnostic, explained to patient that treatment consists of cholecystectomy which can be done electively for his convenience, diet modification discussed, no indication for emergency surgical intervention, may have po intake discharge per primary, return to clinic per patient's request. Plan discussed with: Patient GUANAKO GLASER MD Apr 09, 2025 09:43
[2025-04-09] MEDS: KETOROLAC TROMETH 30 MG/ML 1ML VIAL IV SCH (10:39)
[2025-04-09 10:53] LABS: Urine Amorphous Crystal FEW /hpf (None Seen); Urine Protein, UAD TRACE (Negative)
[2025-04-09 10:58] LABS: Amphetamine Screen, Urine Neg (NEGATIVE); Barbiturate Scree,Urine Neg (NEGATIVE); Benzodiazephine Screen, Urine Neg (NEGATIVE); Cannabinoid Screen, Urine Neg (NEGATIVE); Cocaine Screen, Urine Neg (NEGATIVE); Opiate Scree,Urine Neg (NEGATIVE); Phencyclidine Screen, Urine Neg (NEGATIVE)
[2025-04-09 13:10] VITALS: BP 104/59; PULSE 81; RESP 18; TEMP 97.9; O2SAT 92
[2025-04-09] MEDS: PIPERACILLIN-TAZOB 3.375GM 100 ML IV SCH (13:32)
--- NOTE | 2025-04-09 15:57 | DVH ---
EXAM: NM NM HIDA SCAN HISTORY: Rule out acute cholecystitis COMPARISON: CT and ultrasound examination is of the abdomen dated 04/09/2025. TECHNIQUE: 4.5 mCi technetium labeled Choletec were injected IV followed by anterior planar scintigraphic imaging of the right upper quadrant for up to 4 hours. Kinevac was not given to evaluate for gallbladder ejection fraction. FINDINGS: There is prompt hepatobiliary uptake and excretion. The gallbladder is not visualized within 4 hours. The small bowel is visualized within 10 minutes. IMPRESSION: 1. Nonvisualization of the gallbladder within 4 hours, consistent with acute cholecystitis. 2. No scintigraphic evidence of biliary obstruction.
[2025-04-09] MEDS ORDERED: METR-344 PO (16:22)
[2025-04-09] MEDS ORDERED: SACC250C PO (16:22)
[2025-04-09] MEDS ORDERED: LEVO750T40 PO (16:22)
[2025-04-09 16:37] VITALS: BP 138/75; PULSE 79; RESP 16; TEMP 98.5; O2SAT 99
--- NOTE | 2025-04-09 16:49 | DVHDSRES ---
Discharge Summary Date of Admission Resident Creating Document: BETSY RIOS RESIDENT Apr 09, 2025 at 03:29 Date of Discharge: Apr 09, 2025 Admitting Diagnosis acute cholecystitis Labs/Diagnostic Data: Laboratory Results Test 04/09/25 10:25 04/09/25 05:09 04/09/25 02:36 04/09/25 01:15 Urine Color Light-yellow (Yellow) Urine Clarity Ex.turbid (Clear) Urine pH 5.5 (5.0-9.0) Urine Specific [place] 1.030 (1.001-1.035) Urine Protein Trace (Negative) Urine Ketones Trace (Negative) Urine Blood Negative /uL (Negative) Urine Nitrite Negative (Negative) Urine Bilirubin Negative (Negative) Urine Urobilinogen Normal mg/dL (Negative) Urine Leukocyte Esterase Negative /uL (Negative) Urine RBC 3 /hpf (0 - 3) Urine Microscopic WBC 2 /HPF (0-3) Urine Squamous Epithelial Cells Few /hpf (<5) Urine Amorphous Crystals Few /hpf (None Seen) Urine Bacteria None seen /hpf (None Seen) Urine Mucus Few (None Seen) Urine Glucose Normal mg/dL (Normal) Urine Opiates Screen Neg (NEGATIVE) Urine Fentanyl Screen Neg (NEGATIVE) Urine Barbiturates Screen Neg (NEGATIVE) Urine Phencyclidine Screen Neg (NEGATIVE) Urine Amphetamines Screen Neg (NEGATIVE) Urine Benzodiazepines Screen Neg (NEGATIVE) Urine Cocaine Screen Neg (NEGATIVE) Urine Cannabinoids Screen Neg (NEGATIVE) White Blood Count 10.8 10^3/uL (4.4-10.8) Red Blood Count 4.86 10^6/uL (4.5-5.90) Hemoglobin 14.3 g/dL (13.5-17.5) Hematocrit 42.5 % (41.0-53.0) Mean Corpuscular Volume 87.6 fL (80.0-100.0) Mean Corpuscular Hemoglobin 29.5 pg (28.0-32.0) Mean Corpuscular Hemoglobin Concent 33.7 g/dL (32.0-36.0) Red Cell Distribution Width 13.4 % (11.8-14.3) Platelet Count 425 10^3/uL (140-450) Mean Platelet Volume 6.1 fL (6.9-10.8) Neutrophils (%) (Auto) 85.8 % (37.0-80.0) Lymphocytes (%) (Auto) 11.5 % (10.0-50.0) Monocytes (%) (Auto) 2.1 % (0.0-12.0) Eosinophils (%) (Auto) 0.1 % (0.0-7.0) Basophils (%) (Auto) 0.5 % (0.0-2.0) Neutrophils # (Auto) 9.3 10 ^3/uL (1.6-8.6) Lymphocytes # (Auto) 1.2 10 ^3/uL (0.4-5.4) Monocytes # (Auto) 0.2 10 ^3/uL (0-1.3) Eosinophils # (Auto) 0 10 ^3/uL (0-0.8) Basophils # (Auto) 0.1 10 ^3/uL (0-0.2) Nucleated Red Blood Cells 0.0 % Sodium Level 140 mmol/L (136-145) Potassium Level 4.9 mmol/L (3.5-5.1) Chloride Level 104 mmol/L (98-107) Carbon Dioxide Level 28 mmol/L (20-31) Anion Gap 8 (5-15) Blood Urea Nitrogen 11 mg/dL (9-23) Creatinine 0.85 mg/dL (0.700-1.30) Glomerular Filtration Rate Calc 126 mL/min (>90) BUN/Creatinine Ratio 12.9 (10.0-20.0) Serum Glucose 113 mg/dL (74-106) Calcium Level 9.1 mg/dL (8.7-10.4) Total Bilirubin 0.5 mg/dL (0.2-1.0) Aspartate Amino Transferase (AST) 28 U/L (13-40) Alanine Aminotransferase (ALT) 43 U/L (7-40) Alkaline Phosphatase 62 U/L (46-116) Total Protein 7.3 g/dL (5.7-8.2) Albumin 4.3 g/dL (3.2-4.8) Lactic Acid Level 1.6 mmol/L (0.4-2.0) Prothrombin Time 11.3 sec (9.3-11.8) Prothrombin Time INR 1.07 (0.9-1.15) Activated Partial Thromboplast Time 30.7 SEC (24.5-34.5) Triglycerides Level 130 mg/dL (< 150) Cholesterol Level 156 mg/dL (< 200) LDL Cholesterol 115 mg/dL (< 100) HDL Cholesterol 30 mg/dL (40-59) Lipase 30 U/L (12-53) Other Laboratory Tests 04/09/25 05:09 Brief Hx & Hospital Course: Daquan Michel is a 24-year old male who presented to the ED with the chief complaint of severe epigastric pain, nausea and vomiting. The patient stay did that after eating fried chicken in the evening yesterday, she started having severe epigastric pain which he described as sharp, stabbing in nature, 10/10 in intensity, radiating to the back without any aggravating or relieving factors. It was associated with nausea and multiple episodes of nonbloody, nonbilious vomiting. He mentioned he has had the same pain a few times in the last few months associated with fatty food ingestion. He denies fever, chills or recent sick contact. Gallbladder ultrasound showed cholelithiasis, abdominal CT showed cholelithiasis and hepatic steatosis with hepatomegaly. HIDA scan showed acute cholecystitis. Patient was initially kept NPO. Surgery evaluated the patient and cleared him for discharge and recommended follow up outpatient for elective cholecystectomy. Patient was discharged home in a stable condition on oral antibiotics for 5 days and recommended to follow up with PCP and with surgery. Past medical history: Denies Past surgical history: Denies Home medications: None Social & Personal history: Lives at home with family, denies smoking, alcohol or drugs Allergies: No known allergies Physical examination on the day of discharge: General Appearance: Alert, Oriented X3, Cooperative, No acute distress HEENT: Atraumatic, PERRLA, EOMI, Mucous membrane moist/pink Respiratory: Clear to auscultation, Normal air movement Cardiovascular: Regular rate, Normal S1, Normal S2, No murmurs, no chest wall tenderness Abdominal: Normal bowel sounds, Soft, no tenderness, No hepatospenomegaly, No masses Extremities: No clubbing, No cyanosis, No edema, Normal pulses, No tenderness/swelling Skin: No rashes, No breakdown, No significant lesion Neuro: Normal gait, Normal speech, Strength at 5/5 X4 ext, Normal tone, Sensation intact, Cranial nerves 3-12 NL, Reflexes 2+ Psych/Mental Status: Mental status NL, Mood NL Operations or Procedures 1.PROCEDURE(s): ABDL - ABDOMEN LIMITED REASON: epigastric pain ORDER NUMBER(s): [id number], ACCESSION NUMBER(s): [id number] INDICATION: epigastric pain TECHNIQUE: Multiple real-time sonographic images were obtained of the right upper quadrant. COMPARISON: None FINDINGS: The liver demonstrates diffusely increased echotexture without focal mass lesions. The liver measures 19.1 cm. Normal hepatopetal portal venous flow appreciated. No evidence of pleural effusion or abdominal ascites. There is no intrahepatic or extrahepatic ductal dilatation. The common bile duct was not well visualized. Gallstones and sludge identified within the gallbladder. Gallbladder wall thickening measuring up to 6 mm. Negative sonographic barakat's sign. The right kidney measures 11.2 cm. The right kidney is normal in contour, size, and shape. The echogenicity is normal. There is no hydronephrosis. The pancreas is not well visualized due to overlying bowel gas. IMPRESSION: 1. Cholelithiasis and gallbladder sludge with gallbladder wall thickening. Negative sonographic Barakat sign. Findings equivocal for acute cholecystitis. 2. Hepatic steatosis and hepatomegaly. 2.PROCEDURE(s): CXR1 - CHEST XRAY 1 VIEW REASON: sob ORDER NUMBER(s): [id number], ACCESSION NUMBER(s): [id number] CHEST RADIOGRAPH Indication: sob Technique: Single frontal view of the chest was obtained COMPARISON: XY CHEST PORTABLE on DOS: 10/16/24 FINDINGS: Lines and Tubes: None Lungs: Clear Pleura: No effusion. No pneumothorax. Cardiomediastinal contours: Unremarkable Bones: Unremarkable IMPRESSION: 1. No acute disease. 3.PROCEDURE(s): ABPL - CT AB PEL WO CON-NO ORAL OR IV REASON: Abdominal pain ORDER NUMBER(s): [id number], ACCESSION NUMBER(s): [id number] Exam: CT CT AB PEL WO CON-NO ORAL OR IV History: Abdominal pain Comparison Study: CT ABD/PEL on DOS: 01/06/25 Technique: Multidetector spiral CT of the abdomen and pelvis was performed from lung bases to pubic symphysis. Imaging was performed without intravenous contrast. Coronal and sagittal multiplanar reformats were obtained from the axial data set by the technologist. Radiation Dose : 1. Abdomen/Pelvis: CTDIvol 27.11 mGy, DLP 1829.99 mGy*cm. Findings: Evaluation of vasculature and solid organs is limited due to lack of intravenous contrast use. Lung Bases: Lung bases are clear. Visualized portions of the heart and pericardium are unremarkable. Liver: The liver is normal in size. No focal lesions. Diffusely hypoattenuating liver parenchyma consistent with hepatic steatosis. Gallbladder and Biliary Tree: There are multiple gallstones. No intrahepatic or extrahepatic biliary ductal dilatation. Spleen: Unremarkable Pancreas: The pancreas is grossly unremarkable. Adrenal Glands: Unremarkable Kidneys: Kidneys are unremarkable without calculi or hydronephrosis. GI tract: The stomach is grossly normal in appearance. No evidence of small bowel wall thickening or abnormal dilatation to suggest bowel obstruction. The colon is unremarkable. The appendix is visualized and is normal. Peritoneum/mesentery/retroperitoneum. No evidence of free intraperitoneal air. No ascites. No evidence of suspicious lymphadenopathy. Abdominal Wall: Unremarkable. Vasculature: The visualized abdominal aorta is normal in size and caliber. Evaluation of abdominal and pelvic vessels is limited due to lack of intravenous contrast. Urinary Bladder: Grossly unremarkable for degree of distention. Pelvic Organs: Unremarkable Musculoskeletal: No aggressive focal bony lesions, acute fractures or dislocation. IMPRESSION: 1. No acute abdominal or pelvic findings. 2. Cholelithiasis. 3. Hepatic steatosis. 4.PROCEDURE(s): [facility] - NM HIDA SCAN REASON: Rule out acute cholecystitis ORDER NUMBER(s): [id number], ACCESSION NUMBER(s): [id number] EXAM: NM NM HIDA SCAN HISTORY: Rule out acute cholecystitis COMPARISON: CT and ultrasound examination is of the abdomen dated 04/09/2025. TECHNIQUE: 4.5 mCi technetium labeled Choletec were injected IV followed by anterior planar scintigraphic imaging of the right upper quadrant for up to 4 hours. Kinevac was not given to evaluate for gallbladder ejection fraction. FINDINGS: There is prompt hepatobiliary uptake and excretion. The gallbladder is not visualized within 4 hours. The small bowel is visualized within 10 minutes. IMPRESSION: 1. Nonvisualization of the gallbladder within 4 hours, consistent with acute cholecystitis. 2. No scintigraphic evidence of biliary obstruction. Condition at Discharge: Fair Final Diagnosis/Problems List Acute cholecystitis with cholelithiasis Intractable epigastric pain due to above Ruled out acute pancreatitis Dyslipidemia Morbid obesity, BMI 48.9 kg/m2 Discharge Disposition: Home Discharge Instruct/Medications Diet: Regular Diet comment: recommended to avoid fried, fatty food Activity: No Restrictions, As Tolerated Follow Up/Referral: follow up with PCP follow up with surgery Medications: as per EMR Scheduled Levofloxacin Hemihydrate (Levofloxacin), 750 MG PO DAILY Metronidazole (Flagyl), 500 MG PO TID Yeast (S. Boulardii)(S. Cerevi (Florastor), 250 MG PO DAILY Discharge Statement: "Patient was advised to return to the ER or call 911 if any headaches, dizziness, shortness of breath, chest pain, abdominal pain, bleeding, fevers, or worsening of medical condition. Patient was counseled about treatment plan, medications, possible side effects, patientverbalized understanding. All questions were answered to the best of my ability. This discharge took greater then 30 minutes in planning, reviewing documentation, counseling the patient, and discussing with other team members." ASSESSMENT ASSESSMENT Assessment acute cholecystitis with cholelithiasis Visit Coding STANDARD RES Billing Provider: AC RODRIGUEZ MD Date of Service if different f: Apr 09, 2025 Common Visit Codes: 29538-IIH/OBS DISCH DAY >30min BETSY RIOS RESIDENT Apr 09, 2025 16:49 AC RODRIGUEZ MD Apr 09, 2025 18:43
== END 2025-04-09 17:22 | disposition home or self-care (01) ==
LOC: ER 00:32 → OVERFLOW 03:29
PROVIDERS: ADMIT Student in an Organized Health Care Education/Training Program; ATTEND Student in an Organized Health Care Education/Training Program
DX: K80.00 Calculus of gallbladder with acute cholecystitis without obstruction (principal); E66.01 Morbid (severe) obesity due to excess calories; K76.0 Fatty (change of) liver, not elsewhere classified; Z68.42 Body mass index [BMI] 45.0-49.9, adult; R74.01 Elevation of levels of liver transaminase levels; E78.5 Hyperlipidemia, unspecified
CPT/HCPCS: 36415; 71045; 74176; 76705; 78226; 80053; 80061; 80307; 81001; 83605; 83690; 85025; 85610; 85730; 87040; 96365; 96375; G0378; J1885; J2405; J2543; J3490

== ENCOUNTER 2025-04-21 00:52 | Inpatient (IN) | payer MEDICAID ==
[~2025-04-21] VITALS: Ht 177.8 cm; Wt 160.1 kg
[~2025-04-21 00:52] MED LIST changes: +LEVO750T40 PO; +METR-344 PO; +SACC250C PO; -ZOFR4T SL
--- NOTE | 2025-04-21 01:19 | ED.PDOC ---
GI ASSESSMENT HPI Comments HPI: Poor Historian. 24-year-old male presents to emergency depart for evaluation of the epigastric pain that started at 1:00 a.m. prior to arrival. These are recurrent symptoms. Patient has already been diagnosed with cholelithiasis awaiting to follow up with the specialist be had but he failed to follow up with them. Patient has been seen and evaluated in the ER multiple times with the same symptoms. Denies any use of drugs or alcohol. Patient had multiple episodes of nausea and vomiting nonbilious nonbloody. The pain is constant nonradiating. No alleviating or precipitating factors. Past Medical History: Cholelithiasis Past Surgical History: Denies any REVIEW OF SYSTEMS: CONSTITUTIONAL: Denies acute: fever, diaphoresis, chills, generalized weakness. HEAD: Denies acute: headache, photophobia Eyes: Denies acute: Double vision, vision loss, eye pain, eye discharge. EARS: Denies acute: tinnitus, hearing loss, ear discharge, ear pain, THROAT: Denies acute: sore throat, swelling, difficulty swallowing , pain with swallowing, change in voice. NECK: Denies acute: neck pain, neck swelling, stiff neck. HEART: Denies acute : chest pain, palpitations, LUNGS: Denies acute: SOB, wheezing, cough, hemoptysis ABDOMEN: Denies acute: diarrhea, melena , hematemesis, hematochezia SKIN: Denies acute: rash, redness, lesions, itchiness. EXTREMITIES: Denies acute: calf pain, numbness, tingling, weakness, denies pain in extremity. Denies acute: Low back pain. Neuro: Denies acute: focal neurological deficit, motor or sensory focal neurological deficit, tremors, seizure like activity, confusion, dizziness, change in mental status, loss of bowel or bladder function, cauda equina like symptoms. : Denies acute: dysuria, hematuria, flank pain, increase in urinary frequency. PSYCH: Denies acute: hallucination, suicidal ideation, homicidal ideation. PHYSICAL EXAM: General: -----moderate---acute distress, awake and alert. Head: normocephalic, atraumatic. No raccoon's eyes, no palma sign. Neck: supple, trachea is midline, no swelling. Throat: Normal phonation. Eyes:, no erythema, no purulent discharge, no proptosis, no icterus. Heart: regular rate, regular rhythm, no significant murmur appreciated. Lungs: no apparent respiratory distress, Able to speak in full sentences. No wheezing, no rhonchi, no crackles. No stridors Clear to auscultation bilaterally. Abdomen: Epigastric tender to palpation, non distended, soft, no guarding, no rebound, + bowel sounds. Morbidly obese Neuro: Awake, Alert, oriented to name, self, situation, follows commands GCS=15. Speech is normal. Skin: no petechia, no purpura, no cyanosis, non-pale, not jaundice. Lower extremities: --no - Pitting edema no deformity, no focal swelling, no calf TTP. Makes eye contact. moves all four extremities. Face: no apparent facial droop. ED COURSE: DISCLAIMER: This medical document was created using an electronic medical record system with voice recognition software and computerized dictation system. Although this document has been carefully reviewed, there might still be some phonetic and typographical errors. Occasional wrong-word or "sound-alike" substitutions may have occurred due to the inherent limitations of voice recognition software. These areas are purely typographical due to imperfections of the software programs and do not reflect any compromise in the patient's medical care. Please read the chart carefully and recognize, using context, where these substitutions have occurred. Time Seen by MD: 01:04 Reviewed Notes: Allergies Allergies: Coded Allergies: NO KNOWN ALLERGIES (Unverified , 04/01/24) Home Meds Active Scripts Yeast (S. Boulardii)(S. Cerevi (Florastor) 250 Mg Cap, 250 MG PO DAILY for 5 Days, #5 CAP 0 Refills Prov:FRED UNDERWOOD 04/09/25 Metronidazole (Flagyl) 500 Mg Tab, 500 MG PO TID for 5 Days, #15 TAB 0 Refills Prov:FRED UNDERWOOD 04/09/25 Levofloxacin Hemihydrate (LEVOFLOXACIN) 750 Mg Tab, 750 MG PO DAILY for 5 Days, #5 TAB 0 Refills Prov:FRED UNDERWOOD 04/09/25 Information Source: Patient Past Medical History PAST MEDICAL HISTORY: Denies Surgical History: Denies all surgeries Family History Family History: Reviewed,noncontributory to illness, No family hx of Cancer, No family hx of DM, No family hx of Heart joe, No family hx of HTN, No family hx ofKidney joe, No family hx of Liver joe, No family hx of Lung joe, No family hx of Stroke Social History Smoker: Non-Smoker Alcohol: Denies ETOH Use Drugs: Denies Drug Use Lives In: Home X-Ray, Labs, Meds, VS Vital Signs Date Time Temp Pulse Resp B/P (MAP) Pulse Ox O2 Delivery O2 Flow Rate FiO2 04/21/25 02:35 Room Air* 0 21 04/21/25 02:34 98.2 85 18 120/79 (93) 100 98.2 04/21/25 00:52 98.1 81 18 117/78 98 98.1 Lab Test 04/21/25 02:55 04/21/25 01:41 04/21/25 01:05 Range/Units Lactic Acid Level Pending Urine Color Yellow Yellow Urine Clarity Clear Clear Urine pH 5.5 5.0-9.0 Urine Specific [place] 1.030 1.001-1.035 Urine Protein Trace H Negative Urine Ketones 1+ H Negative Urine Blood Trace H Negative /uL Urine Nitrite Negative Negative Urine Bilirubin Negative Negative Urine Urobilinogen Normal Negative mg/dL Urine Leukocyte Esterase Negative Negative /uL Urine RBC None seen 0 - 3 /hpf Urine Microscopic WBC 2 0-3 /HPF Urine Squamous Epithelial Cells Few <5 /hpf Urine Bacteria None seen None Seen /hpf Urine Mucus Few None Seen Urine Glucose Normal Normal mg/dL White Blood Count 10.8 4.4-10.8 10^3/uL Red Blood Count 5.21 4.5-5.90 10^6/uL Hemoglobin 15.2 13.5-17.5 g/dL Hematocrit 45.8 41.0-53.0 % Mean Corpuscular Volume 87.8 80.0-100.0 fL Mean Corpuscular Hemoglobin 29.2 28.0-32.0 pg Mean Corpuscular Hemoglobin Concent 33.2 32.0-36.0 g/dL Red Cell Distribution Width 14.0 11.8-14.3 % Platelet Count 385 140-450 10^3/uL Mean Platelet Volume 6.5 L 6.9-10.8 fL Neutrophils (%) (Auto) 56.3 37.0-80.0 % Lymphocytes (%) (Auto) 35.4 10.0-50.0 % Monocytes (%) (Auto) 6.0 0.0-12.0 % Eosinophils (%) (Auto) 1.7 0.0-7.0 % Basophils (%) (Auto) 0.6 0.0-2.0 % Neutrophils # (Auto) 6.1 1.6-8.6 10 ^3/uL Lymphocytes # (Auto) 3.8 0.4-5.4 10 ^3/uL Monocytes # (Auto) 0.7 0-1.3 10 ^3/uL Eosinophils # (Auto) 0.2 0-0.8 10 ^3/uL Basophils # (Auto) 0.1 0-0.2 10 ^3/uL Nucleated Red Blood Cells 0.1 % Sodium Level 141 136-145 mmol/L Potassium Level 4.0 3.5-5.1 mmol/L Chloride Level 104 98-107 mmol/L Carbon Dioxide Level 24 20-31 mmol/L Anion Gap 13 5-15 Blood Urea Nitrogen 13 9-23 mg/dL Creatinine 0.80 0.700-1.30 mg/dL Glomerular Filtration Rate Calc 128 >90 mL/min BUN/Creatinine Ratio 16.3 10.0-20.0 Serum Glucose 97 74-106 mg/dL Calcium Level 10.0 8.7-10.4 mg/dL Total Bilirubin 0.3 0.2-1.0 mg/dL Aspartate Amino Transferase (AST) 30 13-40 U/L Alanine Aminotransferase (ALT) 44 H 7-40 U/L Alkaline Phosphatase 69 46-116 U/L Total Protein 7.4 5.7-8.2 g/dL Albumin 4.5 3.2-4.8 g/dL Lipase 36 12-53 U/L Current Medications Medications (Trade) Dose Ordered Sig/Abdulaziz Route Start Time Stop Time Status Last Admin Sodium Chloride 1,000 ml @ 1,000 mls/hr Q1H ONCE IV 04/21/25 01:45 04/21/25 02:44 DC 04/21/25 01:45 Ondansetron HCl (Zofran) 8 mg ONCE ONCE IV 04/21/25 01:45 04/21/25 01:46 DC 04/21/25 02:18 [place] [address] Ph: [phone] DIAGNOSTIC IMAGING Diagnostic Imaging Report : [id number] Signed PATIENT: VERONICA IGLESIAS ACCT: [id number] UNIT: [id number] : 2000 LOC: ER ROOM / BED: / AGE / SEX: 24 / M ADM STATUS: REG ER SERVICE 010 ORDERING PHYSICIAN: ISABELL TOM DO PROCEDURE(s): ABPL - CT AB PEL WO CON-NO ORAL OR IV REASON: abd pain ORDER NUMBER(s): [id number], ACCESSION NUMBER(s): [id number] EXAM: CT CT AB PEL WO CON-NO ORAL OR IV History: abd pain Comparison Study: CT CT AB PEL WO CON-NO ORAL OR IV on DOS: 04/09/25, CT ABD/PEL on DOS: 01/06/25, CT CT AB PEL WO CON-NO ORAL OR IV on DOS: 04/01/24 TECHNIQUE: Multidetector spiral CT of the abdomen was performed from lung bases to pubic symphysis. Imaging was performed without IV contrast. Axial, coronal and sagittal multiplanar reformats were obtained from the axial data set by the technologist. Radiation Dose : 1. Abdomen/Pelvis: CTDIvol 27.87 mGy, DLP 1840.1 mGy*cm. FINDINGS: Evaluation of solid organs is limited due to lack of intravenous contrast use. Lung Bases: No acute or significant lung base finding. Normal heart size. No pleural or pericardial effusion. Liver: The liver is normal in size. No focal lesions. Gallbladder and Biliary Tree: Cholelithiasis. Spleen: Unremarkable Pancreas: The pancreas is grossly normal in appearance. Adrenal Glands: Unremarkable Kidneys: Kidneys are grossly normal without calculi or hydronephrosis. Bladder: Grossly unremarkable for degree of distention. Bowel: The stomach is grossly normal in appearance. Retained colorectal stool. Small bowel and colon are otherwise normal in caliber and distribution. The appendix is normal. Ascites: Absent Lymphadenopathy: No mesenteric, retroperitoneal or periportal lymphadenopathy. Abdominal Wall and Mesentery: Unremarkable. Vasculature: The visualized abdominal aorta is normal in size and caliber. Evaluation of abdominal and pelvic vessels is limited due to lack of intravenous contrast. Pelvic Organs: Unremarkable Musculoskeletal: No aggressive focal bony lesions, acute fractures or dislocation. IMPRESSION: 1. Cholelithiasis. 2. Retained colorectal stool. Radiation optimization: All CT scans at this facility use at least one of these dose optimization techniques: automated exposure control mA and/or kV adjustment per patient size (includes targeted exams where dose is matched to clinical indication) or iterative reconstruction. ATED BY: ROLDAN MARIANO MD DICTATED DATE/TIME: 04/21/25143 SIGNED BY: ROLDAN MARIANO MD SIGNED DATE/TIME: 04/21/25143 CC: Departure 1 Departure Time of Disposition: 03:03 Impression: Primary Impression: Acute cholecystitis Additional Impression: Constipation Disposition: ADMITTED INPATIENT Admit to: Tele Condition: Guarded Additional Instructions: [place] [address] Ph: [phone] DIAGNOSTIC IMAGING Diagnostic Imaging Report : [id number] Signed PATIENT: VERONICA IGLESIAS ACCT: [id number] UNIT: [id number] : 2000 LOC: ER ROOM / BED: / AGE / SEX: 24 / M ADM STATUS: REG ER SERVICE 3 ORDERING PHYSICIAN: ISABELL TOM DO PROCEDURE(s): ABPL - CT AB PEL WO CON-NO ORAL OR IV REASON: abd pain ORDER NUMBER(s): [id number], ACCESSION NUMBER(s): [id number] EXAM: CT CT AB PEL WO CON-NO ORAL OR IV History: abd pain Comparison Study: CT CT AB PEL WO CON-NO ORAL OR IV on DOS: 04/09/25, CT ABD/PEL on DOS: 01/06/25, CT CT AB PEL WO CON-NO ORAL OR IV on DOS: 04/01/24 TECHNIQUE: Multidetector spiral CT of the abdomen was performed from lung bases to pubic symphysis. Imaging was performed without IV contrast. Axial, coronal and sagittal multiplanar reformats were obtained from the axial data set by the technologist. Radiation Dose : 1. Abdomen/Pelvis: CTDIvol 27.87 mGy, DLP 1840.1 mGy*cm. FINDINGS: Evaluation of solid organs is limited due to lack of intravenous contrast use. Lung Bases: No acute or significant lung base finding. Normal heart size. No pleural or pericardial effusion. Liver: The liver is normal in size. No focal lesions. Gallbladder and Biliary Tree: Cholelithiasis. Spleen: Unremarkable Pancreas: The pancreas is grossly normal in appearance. Adrenal Glands: Unremarkable Kidneys: Kidneys are grossly normal without calculi or hydronephrosis. Bladder: Grossly unremarkable for degree of distention. Bowel: The stomach is grossly normal in appearance. Retained colorectal stool. Small bowel and colon are otherwise normal in caliber and distribution. The appendix is normal. Ascites: Absent Lymphadenopathy: No mesenteric, retroperitoneal or periportal lymphadenopathy. Abdominal Wall and Mesentery: Unremarkable. Vasculature: The visualized abdominal aorta is normal in size and caliber. Evaluation of abdominal and pelvic vessels is limited due to lack of intravenous contrast. Pelvic Organs: Unremarkable Musculoskeletal: No aggressive focal bony lesions, acute fractures or dislocation. IMPRESSION: 1. Cholelithiasis. 2. Retained colorectal stool. Radiation optimization: All CT scans at this facility use at least one of these dose optimization techniques: automated exposure control mA and/or kV adjustment per patient size (includes targeted exams where dose is matched to clinical indication) or iterative reconstruction. ATED BY: ROLDAN MARIANO MD DICTATED DATE/TIME: 04/21/25143 SIGNED BY: ROLDAN MARIANO MD SIGNED DATE/TIME: 04/21/25143 CC: Discharged With: ISABELL Jacob DO Apr 21, 2025 01:19
[2025-04-21 01:41] LABS: Hematocrit 45.8 % (41.0-53.0); Hemoglobin 15.2 g/dL (13.5-17.5); Mean Corpuscular Hemoglobin 29.2 pg (28.0-32.0); Mean Corpuscular Volume 87.8 fL (80.0-100.0); Nucleated Red Blood Cells % 0.1 %
[2025-04-21] MEDS: SODIUM CHLORIDE 0.9% 1,000 ML IV ONE ×2 (01:45→04:30)
--- NOTE | 2025-04-21 01:46 | DVH ---
EXAM: CT CT AB PEL WO CON-NO ORAL OR IV History: abd pain Comparison Study: CT CT AB PEL WO CON-NO ORAL OR IV on DOS: 04/09/25, CT ABD/PEL on DOS: 01/06/25, CT CT AB PEL WO CON-NO ORAL OR IV on DOS: 04/01/24 TECHNIQUE: Multidetector spiral CT of the abdomen was performed from lung bases to pubic symphysis. Imaging was performed without IV contrast. Axial, coronal and sagittal multiplanar reformats were obtained from the axial data set by the technologist. Radiation Dose : 1. Abdomen/Pelvis: CTDIvol 27.87 mGy, DLP 1840.1 mGy*cm. FINDINGS: Evaluation of solid organs is limited due to lack of intravenous contrast use. Lung Bases: No acute or significant lung base finding. Normal heart size. No pleural or pericardial effusion. Liver: The liver is normal in size. No focal lesions. Gallbladder and Biliary Tree: Cholelithiasis. Spleen: Unremarkable Pancreas: The pancreas is grossly normal in appearance. Adrenal Glands: Unremarkable Kidneys: Kidneys are grossly normal without calculi or hydronephrosis. Bladder: Grossly unremarkable for degree of distention. Bowel: The stomach is grossly normal in appearance. Retained colorectal stool. Small bowel and colon are otherwise normal in caliber and distribution. The appendix is normal. Ascites: Absent Lymphadenopathy: No mesenteric, retroperitoneal or periportal lymphadenopathy. Abdominal Wall and Mesentery: Unremarkable. Vasculature: The visualized abdominal aorta is normal in size and caliber. Evaluation of abdominal and pelvic vessels is limited due to lack of intravenous contrast. Pelvic Organs: Unremarkable Musculoskeletal: No aggressive focal bony lesions, acute fractures or dislocation. IMPRESSION: 1. Cholelithiasis. 2. Retained colorectal stool. Radiation optimization: All CT scans at this facility use at least one of these dose optimization techniques: automated exposure control mA and/or kV adjustment per patient size (includes targeted exams where dose is matched to clinical indication) or iterative reconstruction.
[2025-04-21 01:52] LABS: Alanine Aminotransferase 44 U/L (7-40); Albumin 4.5 g/dL (3.2-4.8); Alkaline Phosphatase 69 U/L (46-116); Anion Gap 13 (5-15); BUN/Creatinine Ratio 16.3 (10.0-20.0); Blood Urea Nitrogen 13 mg/dL (9-23); Calcium 10.0 mg/dL (8.7-10.4); Carbon Dioxide 24 mmol/L (20-31); Chloride 104 mmol/L (98-107); Glucose 97 mg/dL (74-106); Lipase 36 U/L (12-53); Potassium 4.0 mmol/L (3.5-5.1); Sodium 141 mmol/L (136-145); Total Protein 7.4 g/dL (5.7-8.2)
[2025-04-21 01:53] LABS: Bilirubin, Total 0.3 mg/dL (0.2-1.0)
[2025-04-21 02:00] LABS: Urine Protein, UAD TRACE (Negative)
[2025-04-21] MEDS: ONDANSETRON HCL 4 MG/2 ML VIAL IV ONE (02:18)
--- NOTE | 2025-04-21 02:53 | DVH ---
INDICATION: ruq/epig pain TECHNIQUE: Multiple real-time sonographic images were obtained of the right upper quadrant. COMPARISON: US ABDOMEN LIMITED on DOS: 04/09/25 FINDINGS: The liver demonstrates diffusely increased echotexture without focal mass lesions. The liver measures 19.2 cm. Normal hepatopetal portal venous flow identified. No evidence of pleural effusion or abdominal ascites. There is no intrahepatic or extrahepatic ductal dilatation. The common duct measures 0.3 cm. Multiple mobile gallstones within the gallbladder. The gallbladder is moderately distended and there is pericholecystic fluid. The gallbladder wall is mildly thickened, measuring 0.4 cm. Negative sonographic barakat's sign. The right kidney measures 11.6 cm. The right kidney is normal in contour, size, and shape. The echogenicity is normal. There is no hydronephrosis. The pancreas is not well visualized due to overlying bowel gas. IMPRESSION: 1. Cholelithiasis with mild gallbladder wall thickening and pericholecystic fluid. Negative sonographic Barakat sign. Findings equivocal for acute cholecystitis. 2. Hepatic steatosis and hepatomegaly.
[2025-04-21] MEDS: PANTOPRAZOLE 40 MG TAB PO ONE (03:32)
[2025-04-21] MEDS: LIDOCAINE VISCOUS 2% 15ML UD PO ONE (03:32)
[2025-04-21] MEDS: SUCRALFATE 1 GM TAB PO ONE (03:33)
[2025-04-21] MEDS ORDERED: KETOROLAC TROMETH 30 MG/ML 1ML VIAL IV PRN (04:30)
--- NOTE | 2025-04-21 04:38 | DVHHPRES ---
History of Present Illness Resident Creating Document: NATTY EDWARD RESDIENT History of Present Illness This is a 24-year-old morbidly obese gentleman with a past medical history hypertension, dyslipidemia and gallstone came to the hospital due to abdominal pain since last night. Per patient, pain localized at epigastric area, radiating to right upper quadrant, 10/10 in intensity, stabbing in nature, which worsened with taking food. He also reports of nausea, and vomiting. Denies fever, chest pain, shortness of breaths, or any recent trauma. Patient was recently discharged from [facility], was admitted due to symptomatic cholelithiasis, evaluated by surgeon and recommended outpatient basis follow up for elective cholecystectomy. PMHx:hypertension, dyslipidemia and gallstone Home medication: Does not take any medicine Allergic history: No known allergy Patient seen and examined at the bedside. Patient is still complaining of abdominal pain and nausea. Review of Systems Review of Systems General: patient denies fever, fatigue, weaknes, sweating, any recent changes in appetite and weight HEENT: No headaches, visiual changes, hearing loss, tinnitus, nasal congestion and discharge, and sore throat. Cardiovascular: Denies chest pain, palpitations, dyspnea on exertion, orthopnea, or claudication. Respiratory: No cough, and wheezing. Gastrointestinal: Reports abdominal pain, nausea and vomiting Genitourinary: No dysuria, hematuria, discharge, frequency, urgency, nocturia, incontinence, and urinary retention. Endocrine: No heat or cold intolerance, polydipsia, polyuria, and polyphagia. Neurological: No dizziness, extremity weakness and numbness, tremors, gait disturbance, seizures, and memory impairment. Psychiatric: Denies depression, anxiety,or insomnia. Musculoskeletal: Denies neck pain, stiffness and swelling, back pain, muscle weakness, joint pain, stiffness, swelling, or limited range of motion. Skin: No rashes, itching, skin lesion, changes in hair, nail, skin texture and breast. Hematologic/Lymphatic: Denies easy bruising, bleeding tendencies, or lymph node enlargement. Allergies: Coded Allergies: NO KNOWN ALLERGIES (Unverified , 04/01/24) Medications Current Medications Medications Dose Ordered Sig/Abdulaziz Route Start Time Stop Time Status Last Admin Dose Admin Ondansetron HCl 4 mg Q4HP PRN IV 04/21/25 04:30 UNV Exam Vital Signs Vital Signs Date Time Temp Pulse Resp B/P (MAP) Pulse Ox O2 Delivery O2 Flow Rate FiO2 04/21/25 04:05 Room Air* 0 21 04/21/25 02:34 98.2 85 18 120/79 (93) 100 98.2 Exam General Appearance: Alert, Oriented X3, Cooperative, No acute distress HEENT: Atraumatic, PERRLA, EOMI, Mucous membrane moist/pink Respiratory: Clear to auscultation, Normal air movement Cardiovascular: Regular rate, Normal S1, Normal S2, No murmurs, no chest wall tenderness Abdominal: Right upper quadrant tenderness, Barakat sign positive Extremities: No clubbing, No cyanosis, No edema, Normal pulses, No tenderness/swelling Skin: No rashes, No breakdown, No significant lesion Neuro: Normal gait, Normal speech, Strength at 5/5 X4 ext, Normal tone, Sensation intact, Cranial nerves 3-12 NL, Reflexes 2+ Psych/Mental Status: Mental status NL, Mood NL Labs/Xrays Labs Test 04/21/25 02:55 04/21/25 01:41 04/21/25 01:05 Range/Units Lactic Acid Level 1.9 0.4-2.0 mmol/L Urine Color Yellow Yellow Urine Clarity Clear Clear Urine pH 5.5 5.0-9.0 Urine Specific [place] 1.030 1.001-1.035 Urine Protein Trace H Negative Urine Ketones 1+ H Negative Urine Blood Trace H Negative /uL Urine Nitrite Negative Negative Urine Bilirubin Negative Negative Urine Urobilinogen Normal Negative mg/dL Urine Leukocyte Esterase Negative Negative /uL Urine RBC None seen 0 - 3 /hpf Urine Microscopic WBC 2 0-3 /HPF Urine Squamous Epithelial Cells Few <5 /hpf Urine Bacteria None seen None Seen /hpf Urine Mucus Few None Seen Urine Glucose Normal Normal mg/dL White Blood Count 10.8 4.4-10.8 10^3/uL Red Blood Count 5.21 4.5-5.90 10^6/uL Hemoglobin 15.2 13.5-17.5 g/dL Hematocrit 45.8 41.0-53.0 % Mean Corpuscular Volume 87.8 80.0-100.0 fL Mean Corpuscular Hemoglobin 29.2 28.0-32.0 pg Mean Corpuscular Hemoglobin Concent 33.2 32.0-36.0 g/dL Red Cell Distribution Width 14.0 11.8-14.3 % Platelet Count 385 140-450 10^3/uL Mean Platelet Volume 6.5 L 6.9-10.8 fL Neutrophils (%) (Auto) 56.3 37.0-80.0 % Lymphocytes (%) (Auto) 35.4 10.0-50.0 % Monocytes (%) (Auto) 6.0 0.0-12.0 % Eosinophils (%) (Auto) 1.7 0.0-7.0 % Basophils (%) (Auto) 0.6 0.0-2.0 % Neutrophils # (Auto) 6.1 1.6-8.6 10 ^3/uL Lymphocytes # (Auto) 3.8 0.4-5.4 10 ^3/uL Monocytes # (Auto) 0.7 0-1.3 10 ^3/uL Eosinophils # (Auto) 0.2 0-0.8 10 ^3/uL Basophils # (Auto) 0.1 0-0.2 10 ^3/uL Nucleated Red Blood Cells 0.1 % Sodium Level 141 136-145 mmol/L Potassium Level 4.0 3.5-5.1 mmol/L Chloride Level 104 98-107 mmol/L Carbon Dioxide Level 24 20-31 mmol/L Anion Gap 13 5-15 Blood Urea Nitrogen 13 9-23 mg/dL Creatinine 0.80 0.700-1.30 mg/dL Glomerular Filtration Rate Calc 128 >90 mL/min BUN/Creatinine Ratio 16.3 10.0-20.0 Serum Glucose 97 74-106 mg/dL Calcium Level 10.0 8.7-10.4 mg/dL Total Bilirubin 0.3 0.2-1.0 mg/dL Aspartate Amino Transferase (AST) 30 13-40 U/L Alanine Aminotransferase (ALT) 44 H 7-40 U/L Alkaline Phosphatase 69 46-116 U/L Total Protein 7.4 5.7-8.2 g/dL Albumin 4.5 3.2-4.8 g/dL Lipase 36 12-53 U/L SEPSIS Sepsis Screen Date sepsis recognized/suspect: Apr 21, 2025 Time Sepsis recognized/suspect: 404 Recent Procedure: No On Antibiotic Therapy: No Respiratory Rate >20: No Heart Rate >90: No Temp<36 C (96.8 F) or >38.3 C: No SBP <90 or MAP <65 mmHG: No New Acute Mental Status Change: No Is the patient on CPAP, BIPAP,: No Physician Orders Ct Ab Pel Wo Con-No Oral Or Iv (04/21/25 01:04) Hat Designer (04/21/25 ) Abdomen Limited (04/21/25 01:16) Admit (04/21/25 04:25) Code Status (04/21/25 04:25) Vital Signs .PER UNIT PROTOCOL (04/21/25 04:25) Review Orders With Adm.Md (04/21/25 04:25) Notify Md Of Changes From Base (04/21/25 04:25) Advance Directive (04/21/25 04:25) Patient Condition (04/21/25 04:25) Allergies (04/21/25 04:25) Ondansetron Hcl (Zofran) (04/21/25 04:30) Oxygen By Nasal Cannula (04/21/25 04:25) Stat Ekg For Chest Pain (04/21/25 04:25) Notify Md Of Changes From Base (04/21/25 04:25) Emergency Dysrhythmia Protocol (04/21/25 04:25) Rhythm Strips Once Every Shift (04/21/25 04:25) Complete Blood Count (04/21/25 04:25) Comprehensive Metabolic Panel (04/21/25 04:25) PTPTT (04/21/25 04:25) Magnesium (04/21/25 04:25) Drug Screen (04/21/25 04:25) NS (04/21/25 04:30) Acetaminophen Tablet (Tylenol Tablet) (04/21/25 06:00) Ketorolac Injection (Toradol Injection) (04/21/25 04:30) Metronidazole Ivpb Flagyl (04/21/25 04:30) Ceftriaxone Ivpb Rocephin (04/21/25 04:30) Morphine Sulfate Injection (04/21/25 04:30) Npo Except For Medications (04/21/25 04:29) Vital Signs Date Time Temp Pulse Resp B/P (MAP) Pulse Ox O2 Delivery O2 Flow Rate FiO2 04/21/25 04:05 Room Air* 0 21 04/21/25 02:35 Room Air* 0 21 04/21/25 02:34 98.2 85 18 120/79 (93) 100 98.2 04/21/25 00:52 98.1 81 18 117/78 98 98.1 Laboratory Tests Test 04/21/25 01:05 04/21/25 02:55 White Blood Count 10.8 10^3/uL (4.4-10.8) Lactic Acid Level 1.9 mmol/L (0.4-2.0) Medications Medications Dose Ordered Sig/Abdulaziz Route Start Time Stop Time Status Last Admin Dose Admin Lidocaine HCl 10 ml ONCE ONCE PO 04/21/25 02:45 04/21/25 03:19 DC 04/21/25 03:32 10 ML Ondansetron HCl 8 mg ONCE ONCE IV 04/21/25 01:45 04/21/25 01:46 DC 04/21/25 02:18 8 MG Pantoprazole Sodium 40 mg ONCE ONCE PO 04/21/25 02:45 04/21/25 03:19 DC 04/21/25 03:32 40 MG Sodium Chloride 1,000 ml @ 1,000 mls/hr Q1H ONCE IV 04/21/25 01:45 04/21/25 02:44 DC 04/21/25 01:45 1,000 MLS/HR Sucralfate 1 gm ONCE ONCE PO 04/21/25 02:45 04/21/25 03:19 DC 04/21/25 03:33 1 GM Assessment/Plan Assessment/Plan Acute cholecystitis Cholelithiasis Hypertension Dyslipidemia Morbid obesity Hepatic steatosis * Abdominopelvic CT shows, cholelithiasis and Retained colorectal stool * Abdominal ultrasound shows,cholelithiasis with mild gallbladder wall thickening and pericholecystic fluid. Negative sonographic Barakat sign. Findings equivocal for acute cholecystitis. Hepatic steatosis and hepatomegaly Plan/recommendation: * Empiric antibiotic Rocephin and Flagyl * IV fluid * Pain management * Zofran p.r.n. * Protonix DIET: NPO DVT PROPHYLAXIS: SCDs GI PROPHYLAXIS:: Protonix CODE STATUS: Goal of care discussed for more than 18 minutes, full code DISPOSITION: Med/surge Patient's status and plan discussed with the patient. Case discussed with Dr. Rodriguez. Plan discussed with: Patient, Other (RN) My Orders Orders - NATTY EDWARD RESDIBALDOMERO Procedure Category Date Status Time Admit ADMIT 04/21/25 Transmitted 04:25 Code Status CODE 04/21/25 Transmitted 04:25 Vital Signs [facility] 04/21/25 In Process 04:25 Review Orders With [facility] 04/21/25 In Process Adm.Md 04:25 Notify Md Of Changes [facility] 04/21/25 In Process From Base 04:25 Advance Directive [facility] 04/21/25 In Process 04:25 Patient Condition ORDERS 04/21/25 Transmitted 04:25 Allergies [facility] 04/21/25 In Process 04:25 Ondansetron Hcl PHA 04/21/25 Logged (Zofran) 04:30 Oxygen By Nasal RT 04/21/25 Transmitted Cannula 04:25 Stat Ekg For Chest [facility] 04/21/25 In Process Pain 04:25 Notify Md Of Changes [facility] 04/21/25 In Process From Base 04:25 Emergency Dysrhythmia [facility] 04/21/25 In Process Protocol 04:25 Rhythm Strips Once [facility] 04/21/25 In Process Every Shift 04:25 Complete Blood Count LAB 04/21/25 Logged 04:25 Comprehensive LAB 04/21/25 Logged Metabolic Panel 04:25 PTPTT LAB 04/21/25 Logged 04:25 Magnesium LAB 04/21/25 Logged 04:25 Drug Screen LAB 04/21/25 Logged 04:25 NS PHA 04/21/25 Verified 04:30 Acetaminophen Tablet PHA 04/21/25 Verified (Tylenol Tablet) 06:00 Ketorolac Injection PHA 04/21/25 Verified (Toradol Injection) 04:30 Metronidazole Ivpb PHA 04/21/25 Verified Flagyl 04:30 Ceftriaxone Ivpb PHA 04/21/25 Verified Rocephin 04:30 Morphine Sulfate PHA 04/21/25 Verified Injection 04:30 Npo Except For SARAH 04/21/25 Verified Medications 04:29 Visit Coding STANDARD RES Billing Provider: AC RODRIGUEZ MD Date of Service if different f: Apr 21, 2025 Common Visit Codes: [id number] INP/OBS CARE (HIGH) Secondary Visit Codes: [id number] CARE PLAN 30 MINUTES NATTY EDWARD RESDIENT Apr 21, 2025 04:38
[2025-04-21] MEDS: MORPHINE SULFATE INJ 2 MG/ml SYRG IV ONE (04:40)
[2025-04-21] MEDS: MORPHINE SULFATE 4 MG/ML SYR/VIAL IV PRN (04:48)
[2025-04-21] MEDS: ONDANSETRON HCL 4 MG/2 ML VIAL IV PRN (04:52)
[2025-04-21 04:59] LABS: Amphetamine Screen, Urine Neg (NEGATIVE); Barbiturate Scree,Urine Neg (NEGATIVE); Benzodiazephine Screen, Urine Neg (NEGATIVE); Cannabinoid Screen, Urine Neg (NEGATIVE); Cocaine Screen, Urine Neg (NEGATIVE); Opiate Scree,Urine Neg (NEGATIVE); Phencyclidine Screen, Urine Neg (NEGATIVE)
[2025-04-21 05:10] LABS: INR 1.08 (0.9-1.15); Partial Thromboplastin Time 30.7 SEC (24.5-34.5); Prothrombin Time 11.4 sec (9.3-11.8)
[2025-04-21] MEDS: ACETAMINOPHEN 325 MG TAB PO SCH (06:00)
[2025-04-21 07:30] VITALS: PULSE 73; RESP 14; O2SAT 98
[2025-04-21 08:55] VITALS: BP 106/58; PULSE 67; RESP 16; TEMP 98
[2025-04-21 13:00] VITALS: BP 120/58; PULSE 62; RESP 14; TEMP 98.2; O2SAT 98
[2025-04-21 14:26] VITALS: RESP 16
--- NOTE | 2025-04-21 15:40 | DVHINCON2 ---
Date of service: Apr 21, 2025 Family History: Cholecystitis G8 MOTHER Allergies: Coded Allergies: NO KNOWN ALLERGIES (Unverified , 04/01/24) Home Meds Active Scripts Yeast (S. Boulardii)(S. Cerevi (Florastor) 250 Mg Cap, 250 MG PO DAILY for 5 Days, #5 CAP 0 [facility] 04/09/25 Metronidazole (Flagyl) 500 Mg Tab, 500 MG PO TID for 5 Days, #15 TAB 0 [facility] 04/09/25 Levofloxacin Hemihydrate (LEVOFLOXACIN) 750 Mg Tab, 750 MG PO DAILY for 5 Days, #5 TAB 0 [facility] 04/09/25 Current Medications Current Medications Medications (Trade) Dose Ordered Sig/Abdulaziz Route PRN Reason Start Time Stop Time Status Last Admin Ondansetron HCl (Zofran) 4 mg Q4HP PRN IV NAUSEA / VOMITING 04/21/25 04:30 04/21/25 09:13 Acetaminophen (Tylenol Tablet) 650 mg Q6HR PO 04/21/25 06:00 04/21/25 08:59 DC 04/21/25 06:00 Ketorolac Tromethamine (Toradol Injection) 15 mg Q6HPRN PRN IV MODERATE PAIN (4-6 PAIN SCALE) 04/21/25 04:30 04/26/25 04:29 Metronidazole 100 ml @ 100 mls/hr Q8HR IV 04/21/25 04:30 04/21/25 14:29 Ceftriaxone Sodium 50 ml @ 100 mls/hr DAILY@09 IV 04/21/25 04:30 04/21/25 09:44 Morphine Sulfate 2 mg Q4HPRN PRN IV SEVERE PAIN (7-10 PAIN SCALE) 04/21/25 04:30 04/21/25 09:10 Polyethylene Glycol (Miralax 17GM Powder) 17 gm DAILYPRN PRN PO FOR CONSTIPATION 04/21/25 16:00 UNV Vital Signs Vital Signs Date Time Temp Pulse Resp B/P (MAP) Pulse Ox O2 Delivery O2 Flow Rate FiO2 04/21/25 14:26 16 Room Air* 0 21 04/21/25 13:00 98.2 62 120/58 (78) 98 98.2 Labs/Diagnostic Data Labs Test 04/21/25 02:55 04/21/25 01:41 04/21/25 01:05 Range/Units Lactic Acid Level 1.9 0.4-2.0 mmol/L Urine Color Yellow Yellow Urine Clarity Clear Clear Urine pH 5.5 5.0-9.0 Urine Specific [place] 1.030 1.001-1.035 Urine Protein Trace H Negative Urine Ketones 1+ H Negative Urine Blood Trace H Negative /uL Urine Nitrite Negative Negative Urine Bilirubin Negative Negative Urine Urobilinogen Normal Negative mg/dL Urine Leukocyte Esterase Negative Negative /uL Urine RBC None seen 0 - 3 /hpf Urine Microscopic WBC 2 0-3 /HPF Urine Squamous Epithelial Cells Few <5 /hpf Urine Bacteria None seen None Seen /hpf Urine Mucus Few None Seen Urine Glucose Normal Normal mg/dL Urine Opiates Screen Neg NEGATIVE Urine Fentanyl Screen Neg NEGATIVE Urine Barbiturates Screen Neg NEGATIVE Urine Phencyclidine Screen Neg NEGATIVE Urine Amphetamines Screen Neg NEGATIVE Urine Benzodiazepines Screen Neg NEGATIVE Urine Cocaine Screen Neg NEGATIVE Urine Cannabinoids Screen Neg NEGATIVE White Blood Count 10.8 4.4-10.8 10^3/uL Red Blood Count 5.21 4.5-5.90 10^6/uL Hemoglobin 15.2 13.5-17.5 g/dL Hematocrit 45.8 41.0-53.0 % Mean Corpuscular Volume 87.8 80.0-100.0 fL Mean Corpuscular Hemoglobin 29.2 28.0-32.0 pg Mean Corpuscular Hemoglobin Concent 33.2 32.0-36.0 g/dL Red Cell Distribution Width 14.0 11.8-14.3 % Platelet Count 385 140-450 10^3/uL Mean Platelet Volume 6.5 L 6.9-10.8 fL Neutrophils (%) (Auto) 56.3 37.0-80.0 % Lymphocytes (%) (Auto) 35.4 10.0-50.0 % Monocytes (%) (Auto) 6.0 0.0-12.0 % Eosinophils (%) (Auto) 1.7 0.0-7.0 % Basophils (%) (Auto) 0.6 0.0-2.0 % Neutrophils # (Auto) 6.1 1.6-8.6 10 ^3/uL Lymphocytes # (Auto) 3.8 0.4-5.4 10 ^3/uL Monocytes # (Auto) 0.7 0-1.3 10 ^3/uL Eosinophils # (Auto) 0.2 0-0.8 10 ^3/uL Basophils # (Auto) 0.1 0-0.2 10 ^3/uL Nucleated Red Blood Cells 0.1 % Prothrombin Time 11.4 9.3-11.8 sec Prothrombin Time INR 1.08 0.9-1.15 Activated Partial Thromboplast Time 30.7 24.5-34.5 SEC Sodium Level 141 136-145 mmol/L Potassium Level 4.0 3.5-5.1 mmol/L Chloride Level 104 98-107 mmol/L Carbon Dioxide Level 24 20-31 mmol/L Anion Gap 13 5-15 Blood Urea Nitrogen 13 9-23 mg/dL Creatinine 0.80 0.700-1.30 mg/dL Glomerular Filtration Rate Calc 128 >90 mL/min BUN/Creatinine Ratio 16.3 10.0-20.0 Serum Glucose 97 74-106 mg/dL Calcium Level 10.0 8.7-10.4 mg/dL Magnesium Level 2.1 1.6-2.6 mg/dL Total Bilirubin 0.3 0.2-1.0 mg/dL Aspartate Amino Transferase (AST) 30 13-40 U/L Alanine Aminotransferase (ALT) 44 H 7-40 U/L Alkaline Phosphatase 69 46-116 U/L Total Protein 7.4 5.7-8.2 g/dL Albumin 4.5 3.2-4.8 g/dL Lipase 36 12-53 U/L Assessment [id number] PAIN UPPER ABD CONSTIPATION AFEBRILE VSS ABD SOFT MILD TENDERNESS ALLOW CONSTIPATION TO RESOLVE CONSIDER EMERGENT SURGERY BASED ON ONGOING EVAL Plan discussed with: Patient LETICIA ALMENDAREZ MD Apr 21, 2025 15:40
--- NOTE | 2025-04-21 16:53 | DVHPNRES ---
Progress Note Date Seen: Apr 21, 2025 Resident Creating Document: ZAKI SCHWARTZ RESIDENT Medical Necessity Reason Pt with a Central, PICC or Fol: No Subjective Review of Systems This is a 24-year-old male with morbid obesity, HTN, HLD, cholelithiasis came to hospital with a complaint of epigastric pain since last night before admission. Patient started suddenly, 10/10 intensity, stabbing in nature, worsen with food specially cheesy or fatty foods, relieving factors. Patient current symptoms associated nausea and vomiting, fatigue and occasional headache. Patient vomited few times at home which contain food materials but not mixed with any blood. Patient recently discharged on 04/09/2025 with acute cholecystitis, surgery consulted recommended elective cholecystectomy. Patient currently denies any fever, SOB, chest pain, dysuria or any other acute distress. PMHx:hypertension, dyslipidemia and gallstone Past surgical history: Nothing contributory Family history: Mother -gallstone Home medication: Does not take any medicine Allergic history: No known allergy PCP: NOT selected. Patient seen and evaluated in bedside today. Patient still complained abdominal pain but no nausea and vomiting. Surgical Consult appreciated Objective vital signs Vital Sign Date Time Temp Pulse Resp B/P (MAP) Pulse Ox O2 Delivery O2 Flow Rate FiO2 04/21/25 14:26 16 Room Air* 0 21 04/21/25 13:00 98.2 62 120/58 (78) 98 98.2 Total Intake and Output 04/20/25 04/20/25 04/21/25 15:00 23:00 07:00 Intake Total 1275 ml Balance 1275 ml medications Current Medications Medications Dose Ordered Sig/Abdulaziz Route Start Time Stop Time Status Last Admin Dose Admin Ondansetron HCl 4 mg Q4HP PRN IV 04/21/25 04:30 04/21/25 09:13 4 MG Ketorolac Tromethamine 15 mg Q6HPRN PRN IV 04/21/25 04:30 04/26/25 04:29 Metronidazole 100 ml @ 100 mls/hr Q8HR IV 04/21/25 04:30 04/21/25 14:29 100 MLS/HR Ceftriaxone Sodium 50 ml @ 100 mls/hr DAILY@09 IV 04/21/25 04:30 04/21/25 09:44 100 MLS/HR Morphine Sulfate 2 mg Q4HPRN PRN IV 04/21/25 04:30 04/21/25 09:10 2 MG Polyethylene Glycol 17 gm DAILYPRN PRN PO 04/21/25 16:00 Examination General Appearance: Alert, Oriented X3, Cooperative HEENT: Atraumatic, PERRLA, EOMI, Mucous membrane moist/pink Respiratory: Clear to auscultation, Normal air movement Cardiovascular: Regular rate, Normal S1, Normal S2, No murmurs, no chest wall tenderness Abdominal: Right upper quadrant tenderness, Barakat sign positive Extremities: No clubbing, No cyanosis, No edema, Normal pulses, No tenderness/swelling Skin: No rashes, No breakdown, No significant lesion Neuro: Normal gait, Normal speech, Strength at 5/5 X4 ext, Normal tone, Sensation intact, Cranial nerves 3-12 NL, Reflexes 2+ Psych/Mental Status: Mental status NL laboratory and microbiology Laboratory Tests 04/21/25 01:05 Test 04/21/25 01:05 Range/Units Serum Glucose 97 74-106 mg/dL Problem List/Assessment/Plan Problem List/Assessment/Plan Acute cholecystitis Cholelithiasis Abdominopelvic CT shows, cholelithiasis and Retained colorectal stool Abdominal ultrasound shows,cholelithiasis with mild gallbladder wall thickening and pericholecystic fluid. Findings equivocal for acute cholecystitis. Empiric antibiotic Rocephin and Flagyl IV fluid Clear liquid diet Pain management Zofran p.r.n. Protonix Surgery consult appreciated Hepatic steatosis and hepatomegaly Essential hypertension Mixed hyperlipidemia Morbid obesity, BMI 43.2 Lifestyle modification Diet: Clear liquid GI prophylaxis: Pantoprazole DVT prophylaxis: Patient ambulating Goals of care discussion. More than 21 minute spent with patient. Full code status. Case discussed with Dr. Rodriguez Plan discussed with: Patient, Other (Nurse) My Orders My Orders Orders - ZAKI SCHWARTZ Procedure Category Date Status Time * Surgical Consult CONS 04/21/25 Transmitted 14:29 Polyethylene Glycol PHA 04/21/25 In Process 17g Powder (Miralax 16:00 Clear Liq Diet DIET 04/21/25 Transmitted Dinner Visit Coding STANDARD RES Billing Provider: ZAKI SCHWARTZ Date of Service if different f: Apr 21, 2025 Common Visit Codes: [id number] INP/OBS CARE(HIGH) ZAKI SCHWARTZ RESIDENT Apr 21, 2025 16:53 AC RODRIGUEZ MD Apr 22, 2025 14:39
[2025-04-21] MEDS: POLYETHYLENE GLYCOL 17 GM PWDR PO PRN (17:30)
[2025-04-21 17:45] VITALS: BP 104/79; PULSE 77; RESP 16; TEMP 97.7; O2SAT 92
[2025-04-21 21:00] VITALS: BP 107/73; PULSE 80; RESP 16; TEMP 98.7; O2SAT 96
[2025-04-22] VITALS (7 sets, daily range): BP systolic 103–115; BP diastolic 63–79; PULSE 85–96; RESP 16–19; TEMP 98.7–100.8; O2SAT 94–98
--- NOTE | 2025-04-22 02:39 | DVHINCON2 ---
DATE OF CONSULTATION: 04/21/2025 HISTORY OF PRESENT ILLNESS: A 24-year-old coming in with epigastric left upper abdominal pain, now feeling slightly better. No nausea or vomiting. He is constipated. There is no diarrhea. No hematemesis, melena. No bleeding per rectum. PAST MEDICAL HISTORY: Constipation history off and on. No diabetes or hypertension. PAST SURGICAL HISTORY: Nothing significant. PHYSICAL EXAMINATION: VITAL SIGNS: Afebrile. Stable signs. HEENT: With no evidence of pallor, cyanosis, or jaundice. NECK: Supple, nontender with no thyromegaly or lymphadenopathy. CHEST AND LUNGS: Clear. HEART: Within normal limits. ABDOMEN: Soft. Tender in the epigastric and left upper abdomen but not in the right upper quadrant. No rebound. EXTREMITIES: Unremarkable. NEUROLOGIC: He is intact. CLINICAL IMPRESSION: Rule out biliary colic. Rule out constipation. The CAT scan is suggesting retained colorectal stool. PLAN: The plan would be to keep him under close observation, allow the constipation to resolve. If the symptoms persist, then consider reevaluation for possible gallbladder surgery. Benefits and risks were discussed and consent obtained. MD TRANG Alvarez/KOURTNEY TID: [id number] RECEIPT: [id number] cc: Vazquez Guzman MD
[2025-04-22 05:31] LABS: Hematocrit 41.4 % (41.0-53.0); Hemoglobin 14.4 g/dL (13.5-17.5); Mean Corpuscular Hemoglobin 30.2 pg (28.0-32.0); Mean Corpuscular Volume 87.0 fL (80.0-100.0); Nucleated Red Blood Cells % 0.0 %
[2025-04-22 05:40] LABS: Anion Gap 9 (5-15); Carbon Dioxide 29 mmol/L (20-31); Chloride 102 mmol/L (98-107); Potassium 3.4 mmol/L (3.5-5.1); Sodium 140 mmol/L (136-145)
[2025-04-22 05:41] LABS: Calcium 8.9 mg/dL (8.7-10.4)
[2025-04-22 05:46] LABS: Glucose 98 mg/dL (74-106)
[2025-04-22 05:52] LABS: BUN/Creatinine Ratio 6.3 (10.0-20.0); Blood Urea Nitrogen < 5 mg/dL (9-23)
[2025-04-22] MEDS: POTASSIUM CHL 20 Meq TABLET PO ONE (06:43)
[2025-04-22] MEDS: LACTULOSE 20Gm/30ML SOLN PO ONE (07:02)
[2025-04-22] MEDS: MAGNESIUM CITRATE SOLUTION 300 ML BTL PO ONE (09:45)
--- NOTE | 2025-04-22 09:46 | DVHPN2 ---
Progress Note Date Seen: Apr 22, 2025 Medical Necessity Reason Pt with a Central, PICC or Fol: No Objective vital signs Vital Sign Date Time Temp Pulse Resp B/P (MAP) Pulse Ox O2 Delivery O2 Flow Rate FiO2 04/22/25 08:31 100.1 85 18 112/63 (79) 98 100.1 04/22/25 08:00 Room Air* 0 21 Total Intake and Output 04/21/25 04/21/25 04/22/25 15:00 23:00 07:00 Intake Total 50 ml 200 ml 400 ml Balance 50 ml 200 ml 400 ml medications Current Medications Medications Dose Ordered Sig/Abdulaziz Route Start Time Stop Time Status Last Admin Dose Admin Ondansetron HCl 4 mg Q4HP PRN IV 04/21/25 04:30 04/21/25 18:38 4 MG Ketorolac Tromethamine 15 mg Q6HPRN PRN IV 04/21/25 04:30 04/26/25 04:29 Metronidazole 100 ml @ 100 mls/hr Q8HR IV 04/21/25 04:30 04/22/25 05:12 100 MLS/HR Ceftriaxone Sodium 50 ml @ 100 mls/hr DAILY@09 IV 04/21/25 04:30 04/21/25 09:44 100 MLS/HR Morphine Sulfate 2 mg Q4HPRN PRN IV 04/21/25 04:30 04/21/25 09:10 2 MG Polyethylene Glycol 17 gm DAILYPRN PRN PO 04/21/25 16:00 04/21/25 17:30 17 GM laboratory and microbiology Laboratory Tests 04/22/25 04:45 Test 04/22/25 04:45 Range/Units Serum Glucose 98 74-106 mg/dL Problem List/Assessment/Plan Problem List/Assessment/Plan AFEBRILE VSS ABD SOFT LESS TENDER BM + CONSTIPATION ONGOING MAG CITRATE TODAY CLOSE OBSERVATION NURSE AT BEDSIDE Plan discussed with: Patient LETICIA ALMENDAREZ MD Apr 22, 2025 09:46
--- NOTE | 2025-04-22 11:55 | DVHPNRES ---
Progress Note Date Seen: Apr 22, 2025 Resident Creating Document: ZAKI SCHWARTZ RESIDENT Medical Necessity Reason Pt with a Central, PICC or Fol: No Subjective Review of Systems This is a 24-year-old male with morbid obesity, HTN, HLD, cholelithiasis came to hospital with a complaint of epigastric pain since last night before admission. Patient started suddenly, 10/10 intensity, stabbing in nature, worsen with food specially cheesy or fatty foods, relieving factors. Patient current symptoms associated nausea and vomiting, fatigue and occasional headache. Patient vomited few times at home which contain food materials but not mixed with any blood. Patient recently discharged on 04/09/2025 with acute cholecystitis, surgery consulted recommended elective cholecystectomy. Patient currently denies any fever, SOB, chest pain, dysuria or any other acute distress. PMHx:hypertension, dyslipidemia and gallstone Past surgical history: Nothing contributory Family history: Mother -gallstone Home medication: Does not take any medicine Allergic history: No known allergy PCP: NOT selected. Patient seen and evaluated in bedside today. Patient abd pain improving. Having bowel movement today. Objective vital signs Vital Sign Date Time Temp Pulse Resp B/P (MAP) Pulse Ox O2 Delivery O2 Flow Rate FiO2 04/22/25 08:31 100.1 85 18 112/63 (79) 98 100.1 04/22/25 08:00 Room Air* 0 21 Total Intake and Output 04/21/25 04/21/25 04/22/25 15:00 23:00 07:00 Intake Total 50 ml 200 ml 400 ml Balance 50 ml 200 ml 400 ml medications Current Medications Medications Dose Ordered Sig/Abdulaziz Route Start Time Stop Time Status Last Admin Dose Admin Ondansetron HCl 4 mg Q4HP PRN IV 04/21/25 04:30 04/21/25 18:38 4 MG Ketorolac Tromethamine 15 mg Q6HPRN PRN IV 04/21/25 04:30 04/26/25 04:29 Metronidazole 100 ml @ 100 mls/hr Q8HR IV 04/21/25 04:30 04/22/25 05:12 100 MLS/HR Ceftriaxone Sodium 50 ml @ 100 mls/hr DAILY@09 IV 04/21/25 04:30 04/22/25 09:45 100 MLS/HR Morphine Sulfate 2 mg Q4HPRN PRN IV 04/21/25 04:30 04/21/25 09:10 2 MG Polyethylene Glycol 17 gm DAILYPRN PRN PO 04/21/25 16:00 04/21/25 17:30 17 GM Examination General Appearance: Alert, Oriented X3, Cooperative HEENT: Atraumatic, PERRLA, EOMI, Mucous membrane moist/pink Respiratory: Clear to auscultation, Normal air movement Cardiovascular: Regular rate, Normal S1, Normal S2, No murmurs, no chest wall tenderness Abdominal: Right upper mild quadrant tenderness Extremities: No clubbing, No cyanosis, No edema, Normal pulses, No tenderness/swelling Skin: No rashes, No breakdown, No significant lesion Neuro: Normal gait, Normal speech, Strength at 5/5 X4 ext, Normal tone, Sensation intact, Cranial nerves 3-12 NL, Reflexes 2+ Psych/Mental Status: Mental status NL laboratory and microbiology Laboratory Tests 04/22/25 04:45 Test 04/22/25 04:45 Range/Units Serum Glucose 98 74-106 mg/dL Problem List/Assessment/Plan Problem List/Assessment/Plan Acute cholecystitis Cholelithiasis Abdominopelvic CT shows, cholelithiasis and Retained colorectal stool Abdominal ultrasound shows,cholelithiasis with mild gallbladder wall thickening and pericholecystic fluid. Findings equivocal for acute cholecystitis. Empiric antibiotic Rocephin and Flagyl IV fluid Clear liquid diet Pain management Zofran p.r.n. Protonix Surgery consult appreciated Chronic constipation Pt having BM today Miralax Hypokalemia S. potassium level 3.4 Supplemented BMP Hepatic steatosis and hepatomegaly Essential hypertension Mixed hyperlipidemia Morbid obesity, BMI 43.2 Lifestyle modification Diet: Clear liquid GI prophylaxis: Pantoprazole DVT prophylaxis: Patient ambulating Goals of care discussion. More than 19 minute spent with patient. Full code status. Case discussed with Dr. Rodriguez Plan discussed with: Patient, Other (nurse) My Orders My Orders Orders - ZAKI SCHWARTZ RESIDENT Procedure Category Date Status Time * Surgical Consult CONS 04/21/25 Transmitted 14:29 Polyethylene Glycol PHA 04/21/25 In Process 17g Powder (Miralax 16:00 Clear Liq Diet DIET 04/21/25 Transmitted Dinner Visit Coding STANDARD RES Billing Provider: AC RODRIGUEZ MD Date of Service if different f: Apr 22, 2025 Common Visit Codes: [id number] INP/OBS CARE(HIGH) ZAKI SCHWARTZ RESIDENT Apr 22, 2025 11:55 AC RODRIGUEZ MD Apr 22, 2025 14:52
[2025-04-22] MEDS ORDERED: ACETAMINOPHEN 325 MG TAB PO PRN (16:45)
[2025-04-23] VITALS (7 sets, daily range): BP systolic 100–114; BP diastolic 50–78; PULSE 75–90; RESP 16–20; TEMP 97.1–99.1; O2SAT 94–96
[2025-04-23 06:56] LABS: Hematocrit 42.9 % (41.0-53.0); Hemoglobin 14.6 g/dL (13.5-17.5); Mean Corpuscular Hemoglobin 29.8 pg (28.0-32.0); Mean Corpuscular Volume 87.2 fL (80.0-100.0); Nucleated Red Blood Cells % 0.0 %
[2025-04-23 07:10] LABS: Anion Gap 11 (5-15); Calcium 9.2 mg/dL (8.7-10.4); Carbon Dioxide 30 mmol/L (20-31); Chloride 101 mmol/L (98-107); Potassium 3.6 mmol/L (3.5-5.1); Sodium 142 mmol/L (136-145)
[2025-04-23 07:17] LABS: Glucose 95 mg/dL (74-106)
[2025-04-23 07:18] LABS: BUN/Creatinine Ratio 5.6 (10.0-20.0); Blood Urea Nitrogen < 5 mg/dL (9-23)
[2025-04-23] MEDS: PANTOPRAZOLE 40 MG TAB PO ONE (13:24)
--- NOTE | 2025-04-23 13:58 | DVHPN2 ---
Progress Note Date Seen: Apr 23, 2025 Medical Necessity Reason Pt with a Central, PICC or Fol: No Objective vital signs Vital Sign Date Time Temp Pulse Resp B/P (MAP) Pulse Ox O2 Delivery O2 Flow Rate FiO2 04/23/25 12:36 97.1 82 17 114/78 (90) 96 97.1 04/23/25 08:00 Room Air* 0 21 Total Intake and Output 04/22/25 04/22/25 04/23/25 15:00 23:00 07:00 Intake Total 150 ml 700 ml 600 ml Balance 150 ml 700 ml 600 ml medications Current Medications Medications Dose Ordered Sig/Abdulaziz Route Start Time Stop Time Status Last Admin Dose Admin Ondansetron HCl 4 mg Q4HP PRN IV 04/21/25 04:30 04/21/25 18:38 4 MG Ketorolac Tromethamine 15 mg Q6HPRN PRN IV 04/21/25 04:30 04/26/25 04:29 Metronidazole 100 ml @ 100 mls/hr Q8HR IV 04/21/25 04:30 04/23/25 13:27 100 MLS/HR Ceftriaxone Sodium 50 ml @ 100 mls/hr DAILY@09 IV 04/21/25 04:30 04/23/25 10:24 100 MLS/HR Morphine Sulfate 2 mg Q4HPRN PRN IV 04/21/25 04:30 04/21/25 09:10 2 MG Polyethylene Glycol 17 gm DAILYPRN PRN PO 04/21/25 16:00 04/21/25 17:30 17 GM Acetaminophen 650 mg Q6HP PRN PO 04/22/25 16:45 Pantoprazole Sodium 40 mg DAILY@0600 PO 04/24/25 06:00 laboratory and microbiology Laboratory Tests 04/23/25 06:06 Test 04/23/25 06:06 Range/Units Serum Glucose 95 74-106 mg/dL Problem List/Assessment/Plan Problem List/Assessment/Plan AFEBRILE VSS ABD SOFT LESS TENDER BM + CONSTIPATION RESOLVING HIDA SCAN TO DETERMINE THE NEED FOR GB SURGERY CLOSE OBSERVATION NURSE AT BEDSIDE Plan discussed with: Patient LETICIA ALMENDAREZ MD Apr 23, 2025 13:57
--- NOTE | 2025-04-23 16:56 | DVH ---
PROCEDURE: [place] NM HIDA SCAN Exam Date: 04/23/2025 02:19 PM CLINICAL HISTORY: acute cholecystitis Comparison Study: [facility] HIDA SCAN on DOS: 04/09/25 Nuclear Medicine Hepatobiliary Scan. TECHNIQUE: Following the intravenous administration of 5.1 mCi of technetium 99m labeled Choletec multiple planar abdominal planar images were obtained in anterior projection in 2 minute intervals for45 minutes . Right lateral images were obtained at 60 minutes after injection. FINDINGS: The liver appears grossly normal in size. There is no abnormal persistence of the cardiac or blood pool activity. There is prompt visualization of the gallbladder and excretion of activity into the small bowel. IMPRESSION: 1. Unremarkable hepatobiliary study without evidence of acute cholecystitis. 2. Gallbladder small bowel or demonstrated 12 minutes.
--- NOTE | 2025-04-23 17:10 | DVHPNRES ---
Progress Note Date Seen: Apr 23, 2025 Resident Creating Document: ZAKI SCHWARTZ RESIDENT Medical Necessity Reason Pt with a Central, PICC or Fol: No Subjective Review of Systems This is a 24-year-old male with morbid obesity, HTN, HLD, cholelithiasis came to hospital with a complaint of epigastric pain since last night before admission. Patient started suddenly, 10/10 intensity, stabbing in nature, worsen with food specially cheesy or fatty foods, relieving factors. Patient current symptoms associated nausea and vomiting, fatigue and occasional headache. Patient vomited few times at home which contain food materials but not mixed with any blood. Patient recently discharged on 04/09/2025 with acute cholecystitis, surgery consulted recommended elective cholecystectomy. Patient currently denies any fever, SOB, chest pain, dysuria or any other acute distress. PMHx:hypertension, dyslipidemia and gallstone Past surgical history: Nothing contributory Family history: Mother -gallstone Home medication: Does not take any medicine Allergic history: No known allergy PCP: NOT selected. Patient seen and evaluated in bedside today. Patient abd pain improving. Having bowel movement today. Patient is scheduled for surgery tomorrow. NPO midnight. Objective vital signs Vital Sign Date Time Temp Pulse Resp B/P (MAP) Pulse Ox O2 Delivery O2 Flow Rate FiO2 04/23/25 15:36 82 17 114/78 04/23/25 12:36 97.1 96 97.1 04/23/25 08:00 Room Air* 0 21 Total Intake and Output 04/22/25 04/22/25 04/23/25 15:00 23:00 07:00 Intake Total 150 ml 700 ml 600 ml Balance 150 ml 700 ml 600 ml medications Current Medications Medications Dose Ordered Sig/Abdulaziz Route Start Time Stop Time Status Last Admin Dose Admin Ondansetron HCl 4 mg Q4HP PRN IV 04/21/25 04:30 04/21/25 18:38 4 MG Ketorolac Tromethamine 15 mg Q6HPRN PRN IV 04/21/25 04:30 04/26/25 04:29 Metronidazole 100 ml @ 100 mls/hr Q8HR IV 04/21/25 04:30 04/23/25 13:27 100 MLS/HR Ceftriaxone Sodium 50 ml @ 100 mls/hr DAILY@09 IV 04/21/25 04:30 04/23/25 10:24 100 MLS/HR Morphine Sulfate 2 mg Q4HPRN PRN IV 04/21/25 04:30 04/23/25 15:36 2 MG Polyethylene Glycol 17 gm DAILYPRN PRN PO 04/21/25 16:00 04/21/25 17:30 17 GM Acetaminophen 650 mg Q6HP PRN PO 04/22/25 16:45 Pantoprazole Sodium 40 mg DAILY@0600 PO 04/24/25 06:00 Examination General Appearance: Alert, Oriented X3, Cooperative HEENT: Atraumatic, PERRLA, EOMI, Mucous membrane moist/pink Respiratory: Clear to auscultation, Normal air movement Cardiovascular: Regular rate, Normal S1, Normal S2, No murmurs, no chest wall tenderness Abdominal: Bowel sounds present all 4 quadrants, mild tender on deep palpation in epigastric region Extremities: No clubbing, No cyanosis, No edema, Normal pulses, No tenderness/swelling Skin: No rashes, No breakdown, No significant lesion Neuro: Normal gait, Normal speech, Strength at 5/5 X4 ext, Normal tone, Sensation intact, Cranial nerves 3-12 NL, Reflexes 2+ Psych/Mental Status: Mental status NL laboratory and microbiology Laboratory Tests 04/23/25 06:06 Test 04/23/25 06:06 Range/Units Serum Glucose 95 74-106 mg/dL Problem List/Assessment/Plan Problem List/Assessment/Plan Acute cholecystitis Cholelithiasis Abdominopelvic CT shows, cholelithiasis and Retained colorectal stool Abdominal ultrasound shows,cholelithiasis with mild gallbladder wall thickening and pericholecystic fluid. Findings equivocal for acute cholecystitis. Empiric antibiotic Rocephin and Flagyl IV fluid Clear liquid diet Pain management Zofran p.r.n. Protonix Surgery consult appreciated NPO midnight Scheduled for cholecystectomy tomorrow Chronic constipation Encouraged fiber containing diet Miralax Hypokalemia Supplemented BMP Hepatic steatosis and hepatomegaly Essential hypertension Mixed hyperlipidemia Morbid obesity, BMI 43.2 Lifestyle modification Diet: Clear liquid GI prophylaxis: Pantoprazole DVT prophylaxis: Patient ambulating Goals of care discussion. More than 23 minute spent with patient. Full code status. Case discussed with Dr. Rodriguez Plan discussed with: Patient, Other (Nurse) Visit Coding STANDARD RES Billing Provider: AC RODRIGUEZ MD Date of Service if different f: Apr 23, 2025 ZAKI SCHWARTZ RESIDENT Apr 23, 2025 17:10
[2025-04-24 01:00] VITALS: BP 115/73; PULSE 91; RESP 20; TEMP 97.9; O2SAT 95
[2025-04-24 05:00] VITALS: BP 100/61; PULSE 82; RESP 19; TEMP 98; O2SAT 97
[2025-04-24] MEDS: PANTOPRAZOLE 40 MG TAB PO SCH (05:19)
[2025-04-24 06:35] LABS: Hematocrit 41.8 % (41.0-53.0); Hemoglobin 14.2 g/dL (13.5-17.5); Mean Corpuscular Hemoglobin 29.6 pg (28.0-32.0); Mean Corpuscular Volume 87.1 fL (80.0-100.0); Nucleated Red Blood Cells % 0.1 %
[2025-04-24 06:51] LABS: Anion Gap 11 (5-15); Carbon Dioxide 28 mmol/L (20-31); Chloride 102 mmol/L (98-107); Potassium 3.6 mmol/L (3.5-5.1); Sodium 141 mmol/L (136-145)
[2025-04-24 06:52] LABS: Calcium 9.0 mg/dL (8.7-10.4)
[2025-04-24 06:57] LABS: BUN/Creatinine Ratio 8.1 (10.0-20.0); Glucose 86 mg/dL (74-106)
[2025-04-24 06:59] LABS: Blood Urea Nitrogen 6 mg/dL (9-23)
[2025-04-24 08:00] VITALS: PULSE 80; RESP 16; O2SAT 95
[2025-04-24 08:55] VITALS: BP 104/65; PULSE 80; RESP 16; TEMP 98; O2SAT 95
--- NOTE | 2025-04-24 11:45 | DVHPN2 ---
Progress Note Date Seen: Apr 24, 2025 Medical Necessity Reason Pt with a Central, PICC or Fol: No Objective vital signs Vital Sign Date Time Temp Pulse Resp B/P (MAP) Pulse Ox O2 Delivery O2 Flow Rate FiO2 04/24/25 08:55 98.0 80 16 104/65 (78) 95 98.0 04/24/25 08:00 Room Air* 0 21 Total Intake and Output 04/23/25 04/23/25 04/24/25 15:00 23:00 07:00 Intake Total 50 ml 500 ml 460 ml Balance 50 ml 500 ml 460 ml medications Current Medications Medications Dose Ordered Sig/Abdulaziz Route Start Time Stop Time Status Last Admin Dose Admin Ondansetron HCl 4 mg Q4HP PRN IV 04/21/25 04:30 04/21/25 18:38 4 MG Ketorolac Tromethamine 15 mg Q6HPRN PRN IV 04/21/25 04:30 04/26/25 04:29 Metronidazole 100 ml @ 100 mls/hr Q8HR IV 04/21/25 04:30 04/24/25 05:19 100 MLS/HR Ceftriaxone Sodium 50 ml @ 100 mls/hr DAILY@09 IV 04/21/25 04:30 04/24/25 09:00 100 MLS/HR Polyethylene Glycol 17 gm DAILYPRN PRN PO 04/21/25 16:00 04/21/25 17:30 17 GM Acetaminophen 650 mg Q6HP PRN PO 04/22/25 16:45 Pantoprazole Sodium 40 mg DAILY@0600 PO 04/24/25 06:00 04/24/25 05:19 40 MG laboratory and microbiology Laboratory Tests 04/24/25 05:56 Test 04/24/25 05:56 Range/Units Serum Glucose 86 74-106 mg/dL Problem List/Assessment/Plan Problem List/Assessment/Plan AFEBRILE VSS ABD SOFT LESS TENDER BM + CONSTIPATION RESOLVING HIDA SCAN NEG CONSIDER ELECTIVE SURGERY FOR GALL BLADDER INDICATED PT AGREES WITH PLAN NURSE AT BEDSIDE ADVANCE DIET TRAVIS CLEARED FOR DISCHARGE Plan discussed with: Patient My Orders My Orders Orders - LETICIA ALMENDAREZ MD Procedure Category Date Status Time Obtain Consent For: ORDERS 04/23/25 Transmitted 13:58 Obtain Consent For SARAH 04/23/25 In Process Anesthesia 13:58 Clear Liq Diet DIET 04/24/25 Transmitted Breakfast LETICIA ALMENDAREZ MD Apr 24, 2025 11:45
--- NOTE | 2025-04-24 16:40 | DVHDSRES ---
Discharge Summary Date of Admission Resident Creating Document: SHAQ BOGGS RESIDENT Apr 21, 2025 at 04:25 Date of Discharge: Apr 24, 2025 Admitting Diagnosis Acute Cholecystitis Wounds: No wounds Labs/Diagnostic Data: Laboratory Results Test 04/24/25 05:56 04/22/25 04:45 04/21/25 02:55 04/21/25 01:41 White Blood Count 7.6 10^3/uL (4.4-10.8) Red Blood Count 4.80 10^6/uL (4.5-5.90) Hemoglobin 14.2 g/dL (13.5-17.5) Hematocrit 41.8 % (41.0-53.0) Mean Corpuscular Volume 87.1 fL (80.0-100.0) Mean Corpuscular Hemoglobin 29.6 pg (28.0-32.0) Mean Corpuscular Hemoglobin Concent 33.9 g/dL (32.0-36.0) Red Cell Distribution Width 13.8 % (11.8-14.3) Platelet Count 332 10^3/uL (140-450) Mean Platelet Volume 6.2 fL (6.9-10.8) Neutrophils (%) (Auto) 58.3 % (37.0-80.0) Lymphocytes (%) (Auto) 28.2 % (10.0-50.0) Monocytes (%) (Auto) 8.0 % (0.0-12.0) Eosinophils (%) (Auto) 4.5 % (0.0-7.0) Basophils (%) (Auto) 1.0 % (0.0-2.0) Neutrophils # (Auto) 4.4 10 ^3/uL (1.6-8.6) Lymphocytes # (Auto) 2.2 10 ^3/uL (0.4-5.4) Monocytes # (Auto) 0.6 10 ^3/uL (0-1.3) Eosinophils # (Auto) 0.3 10 ^3/uL (0-0.8) Basophils # (Auto) 0.1 10 ^3/uL (0-0.2) Nucleated Red Blood Cells 0.1 % Sodium Level 141 mmol/L (136-145) Potassium Level 3.6 mmol/L (3.5-5.1) Chloride Level 102 mmol/L (98-107) Carbon Dioxide Level 28 mmol/L (20-31) Anion Gap 11 (5-15) Blood Urea Nitrogen 6 mg/dL (9-23) Creatinine 0.74 mg/dL (0.700-1.30) Glomerular Filtration Rate Calc 131 mL/min (>90) BUN/Creatinine Ratio 8.1 (10.0-20.0) Serum Glucose 86 mg/dL (74-106) Calcium Level 9.0 mg/dL (8.7-10.4) Hemoglobin A1c 5.3 % A1C (<5.7) Thyroid Stimulating Hormone (TSH) 1.67 uIU/mL (0.55-4.78) Lactic Acid Level 1.9 mmol/L (0.4-2.0) Urine Color Yellow (Yellow) Urine Clarity Clear (Clear) Urine pH 5.5 (5.0-9.0) Urine Specific [place] 1.030 (1.001-1.035) Urine Protein Trace (Negative) Urine Ketones 1+ (Negative) Urine Blood Trace /uL (Negative) Urine Nitrite Negative (Negative) Urine Bilirubin Negative (Negative) Urine Urobilinogen Normal mg/dL (Negative) Urine Leukocyte Esterase Negative /uL (Negative) Urine RBC None seen /hpf (0 - 3) Urine Microscopic WBC 2 /HPF (0-3) Urine Squamous Epithelial Cells Few /hpf (<5) Urine Bacteria None seen /hpf (None Seen) Urine Mucus Few (None Seen) Urine Glucose Normal mg/dL (Normal) Urine Opiates Screen Neg (NEGATIVE) Urine Fentanyl Screen Neg (NEGATIVE) Urine Barbiturates Screen Neg (NEGATIVE) Urine Phencyclidine Screen Neg (NEGATIVE) Urine Amphetamines Screen Neg (NEGATIVE) Urine Benzodiazepines Screen Neg (NEGATIVE) Urine Cocaine Screen Neg (NEGATIVE) Urine Cannabinoids Screen Neg (NEGATIVE) Test 04/21/25 01:05 Prothrombin Time 11.4 sec (9.3-11.8) Prothrombin Time INR 1.08 (0.9-1.15) Activated Partial Thromboplast Time 30.7 SEC (24.5-34.5) Magnesium Level 2.1 mg/dL (1.6-2.6) Total Bilirubin 0.3 mg/dL (0.2-1.0) Aspartate Amino Transferase (AST) 30 U/L (13-40) Alanine Aminotransferase (ALT) 44 U/L (7-40) Alkaline Phosphatase 69 U/L (46-116) Total Protein 7.4 g/dL (5.7-8.2) Albumin 4.5 g/dL (3.2-4.8) Lipase 36 U/L (12-53) Other Laboratory Tests 04/24/25 05:56 Brief Hx & Hospital Course: Mr. Michel is a 24-year-old male with morbid obesity, HTN, HLD, and cholelithiasis, who presented to [facility] with chief complaint of epigastric pain. Patient started suddenly the night prior and is described as stabbing in nature, 10/10 intensity, worsen by food especially cheesy or fatty foods, without relieving factors, associated with nausea, vomiting, fatigue, constipation and occasional headache. He denies any fever, SOB, chest pain, dysuria or any other acute distress. Patient recently discharged on 04/09/2025 with acute cholecystitis, surgery consulted and recommended elective cholecystectomy. Due persistence of symptoms he presented for evaluation in the ED. On evaluation in the ED, he was afebrile, normocardic, normotensive, saturating adequately on room air. Initial labs are within normal range. CT abdomen shows cholethiasis and retained colorectal stool. Gallbladder US shows cholelithiasis with mild gallbladder wall thickening and pericholecystic fluid, negative sonographic Barakat sign. He was placed NPO, and started on IV fluids, antibiotics, and pain management, and was admitted for further work up and management. Patient was evaluated by general surgery who recommended a HIDA scan and surgery depending on result. HIDA scan showed unremarkable hepatobiliary study without evidence of acute cholecystitis. General surgery subsequently recommended elective surgery as indicated and cleared the patient for discharge. On evaluation, the patient states that he is well, pain is controlled, he has been able to sleep and eat without issue. Vitals are within normal range. Labs are within normal range. The patient is considered stable for discharge home with follow up appointment in the discharge clinic. The patient will also follow up with his PCP, Dr. Guzman. All recommendations, questions, and concerns have been addressed. The patient states he understands and agrees. Physical Exam General: The patient alert and oriented in person place and time. Patient following commands HEENT: Normocephalic, atraumatic, normal reactive pupils, EOM intact, pink conjunctiva, pink moist mucous membrane Respiratory/pulmonary: Bilateral chest expansion, no pain on palpation of chest wall, clear lungs bilaterally, vesicular murmurs present in almost all lung rojas, no associated crackles or wheezes. Cardiovascular: Normal RRR, normal S1 and S2, no murmurs Abdomen: Obese, Abdomen nondistended, normal bowel sounds, soft, there is no pain to palpation in any of the abdominal quadrants, no palpable masses. Extremities: No deformities, there is no peripheral edema present at the lower extremities, normal pulses Skin: No rashes or pruritus, there is no sacral edema present at this time. Neurological: Intact cranial nerves with no focal neurologic deficits Goals of care and discharge plan was discussed with the patient for over 27 minutes. Case discussed with Dr. Ball Consults/Reason for consult General surgery was consulted for evaluation for possible cholecystectomy Operations or Procedures EXAM: CT CT AB PEL WO CON-NO ORAL OR IV History: abd pain Comparison Study: CT CT AB PEL WO CON-NO ORAL OR IV on DOS: 04/09/25, CT ABD/PEL on DOS: 01/06/25, CT CT AB PEL WO CON-NO ORAL OR IV on DOS: 04/01/24 TECHNIQUE: Multidetector spiral CT of the abdomen was performed from lung bases to pubic symphysis. Imaging was performed without IV contrast. Axial, coronal and sagittal multiplanar reformats were obtained from the axial data set by the technologist. Radiation Dose : 1. Abdomen/Pelvis: CTDIvol 27.87 mGy, DLP 1840.1 mGy*cm. FINDINGS: Evaluation of solid organs is limited due to lack of intravenous contrast use. Lung Bases: No acute or significant lung base finding. Normal heart size. No pleural or pericardial effusion. Liver: The liver is normal in size. No focal lesions. Gallbladder and Biliary Tree: Cholelithiasis. Spleen: Unremarkable Pancreas: The pancreas is grossly normal in appearance. Adrenal Glands: Unremarkable Kidneys: Kidneys are grossly normal without calculi or hydronephrosis. Bladder: Grossly unremarkable for degree of distention. Bowel: The stomach is grossly normal in appearance. Retained colorectal stool. Small bowel and colon are otherwise normal in caliber and distribution. The appendix is normal. Ascites: Absent Lymphadenopathy: No mesenteric, retroperitoneal or periportal lymphadenopathy. Abdominal Wall and Mesentery: Unremarkable. Vasculature: The visualized abdominal aorta is normal in size and caliber. Evaluation of abdominal and pelvic vessels is limited due to lack of intravenous contrast. Pelvic Organs: Unremarkable Musculoskeletal: No aggressive focal bony lesions, acute fractures or dislocation. IMPRESSION: 1. Cholelithiasis. 2. Retained colorectal stool. INDICATION: ruq/epig pain TECHNIQUE: Multiple real-time sonographic images were obtained of the right upper quadrant. COMPARISON: US ABDOMEN LIMITED on DOS: 04/09/25 FINDINGS: The liver demonstrates diffusely increased echotexture without focal mass lesions. The liver measures 19.2 cm. Normal hepatopetal portal venous flow identified. No evidence of pleural effusion or abdominal ascites. There is no intrahepatic or extrahepatic ductal dilatation. The common duct measures 0.3 cm. Multiple mobile gallstones within the gallbladder. The gallbladder is moderately distended and there is pericholecystic fluid. The gallbladder wall is mildly thickened, measuring 0.4 cm. Negative sonographic barakat's sign. The right kidney measures 11.6 cm. The right kidney is normal in contour, size, and shape. The echogenicity is normal. There is no hydronephrosis. The pancreas is not well visualized due to overlying bowel gas. IMPRESSION: 1. Cholelithiasis with mild gallbladder wall thickening and pericholecystic fluid. Negative sonographic Barakat sign. Findings equivocal for acute cholecystitis. 2. Hepatic steatosis and hepatomegaly. PROCEDURE: [facility] HIDA SCAN Exam Date: 04/23/2025 02:19 PM CLINICAL HISTORY: acute cholecystitis Comparison Study: [facility] HIDA SCAN on DOS: 04/09/25 Nuclear Medicine Hepatobiliary Scan. TECHNIQUE: Following the intravenous administration of 5.1 mCi of technetium 99m labeled Choletec multiple planar abdominal planar images were obtained in anterior projection in 2 minute intervals for45 minutes . Right lateral images were obtained at 60 minutes after injection. FINDINGS: The liver appears grossly normal in size. There is no abnormal persistence of the cardiac or blood pool activity. There is prompt visualization of the gallbladder and excretion of activity into the small bowel. IMPRESSION: 1. Unremarkable hepatobiliary study without evidence of acute cholecystitis. 2. Gallbladder small bowel or demonstrated 12 minutes. Condition at Discharge: Stable Final Diagnosis/Problems List Acute cholecystitis Cholelithiasis Chronic constipation Hypokalemia, resolved Hepatic steatosis and hepatomegaly Essential hypertension Mixed hyperlipidemia Morbid obesity, BMI 43.2 Discharge Disposition: Home Discharge Instruct/Medications Diet: Cardiac 2g Na,low cholest Activity: No Restrictions, As Tolerated Scheduled Yeast (S. Boulardii)(S. Cerevi (Florastor), 250 MG PO DAILY Discontinued Medications Levofloxacin Hemihydrate (Levofloxacin), 750 MG PO DAILY Metronidazole (Flagyl), 500 MG PO TID Discharge Statement: "Patient was advised to return to the ER or call 911 if any headaches, dizziness, shortness of breath, chest pain, abdominal pain, bleeding, fevers, or worsening of medical condition. Patient was counseled about treatment plan, medications, possible side effects, patientverbalized understanding. All questions were answered to the best of my ability. This discharge took greater then 30 minutes in planning, reviewing documentation, counseling the patient, and discussing with other team members." ASSESSMENT ASSESSMENT Assessment Abdominal pain cholelithiasis Visit Coding STANDARD RES Billing Provider: ZAIRA BALL DO Date of Service if different f: Apr 24, 2025 SHAQ BOGGS RESIDENT Apr 24, 2025 16:40
== END 2025-04-24 13:30 | disposition home or self-care (01) ==
LOC: ER 00:52 → EDBD 00:52 → EDUNIT# 00:52 → OVERFLOW 04:25 → EAST 14:19
PROVIDERS: ADMIT Student in an Organized Health Care Education/Training Program; ATTEND Student in an Organized Health Care Education/Training Program
DX: K80.00 Calculus of gallbladder with acute cholecystitis without obstruction (principal); R16.0 Hepatomegaly, not elsewhere classified; E66.01 Morbid (severe) obesity due to excess calories; K76.0 Fatty (change of) liver, not elsewhere classified; I10 Essential (primary) hypertension; Z68.41 Body mass index [BMI] 40.0-44.9, adult; E78.2 Mixed hyperlipidemia; K59.09 Other constipation; E87.6 Hypokalemia
CPT/HCPCS: 36415; 74176; 76705; 78226; 80048; 80053; 80307; 81001; 83036; 83605; 83690; 83735; 84443; 85025; 85610; 85730; 96361; 96365; 96375; G0378; J2405; J3490